=== PATIENT | female | born 1955 | race Hispanic/Latino ===

== ENCOUNTER 2017-12-05 22:16 | Emergency (ER) | payer OTHER, SELFPAY ==
--- OUTSIDE RECORDS SUMMARY | 2017-12-05 22:19 | XMS REPORT | Clinical Summary ---
:1955 Author Organization [facility] Address [address] [place] [id number] Phone Care Team Providers Name Role Phone Unavailable Primary Care Provider Unavailable Allergies Active Allergy Reactions Severity Noted Date Comments Morphine Other (See Comments) 06/11/2017 [place] very sick,head like going to explode Current Medications Prescription Sig. Disp. Refills Start Date End Date Status lisinopril Take 20 mg by mouth Active (PRINIVIL,ZESTRIL) 20 MG 2 (two) times tablet daily. levothyroxine (SYNTHROID, Take 75 mcg by Active LEVOTHROID) 75 MCG tablet mouth Every morning on an empty stomach. diazePAM (VALIUM) 10 MG Take 10 mg by mouth Active tablet every 6 (six) hours as needed for Anxiety. citalopram (CELEXA) 20 MG Take 20 mg by mouth Active tablet daily. Active Problems Not on file Encounters Date Type Specialty Care Team Description 06/11/2017 Emergency Emergency Medicine after 12/04/2016 Social History Tobacco Use Types Packs/Day Years Used Date Never Smoker Smokeless Tobacco: Never Used Alcohol Use Drinks/Week oz/Week Comments No Sex Assigned at Date Recorded Not on file Last Filed Vital Signs Vital Sign Reading Time Taken Blood Pressure 144/66 06/11/2017 10:36 PM [employer]IL[employer] AIDE [employer] Pulse 78 06/11/2017 10:36 PM [employer] Temperature 36.5 C (97.7 F) 06/11/2017 10:36 PM [employer] Respiratory Rate 20 06/11/2017 10:36 PM [employer] Oxygen Saturation 96% 06/11/2017 10:36 PM [employer] Inhaled Oxygen Concentration - - Weight 81.6 kg (180 lb) 06/11/2017 10:36 PM [employer] Height 157.5 cm (5' 2") 06/11/2017 10:36 PM [employer] Body Mass Index 32.92 06/11/2017 10:36 PM [employer] Plan of Treatment Not on file Results Not on fileafter 12/04/2016
--- OUTSIDE RECORDS SUMMARY | 2017-12-05 22:19 | XMS REPORT | Clinical Summary ---
:1955 Author Organization [facility] Address [address] [place] [id number] Care Team Providers Name Role Phone Dom Sotelo MD Primary Care Provider Allergies No Known Allergies Current Medications Prescription Sig. Disp. Refills Start Date End Date Status levothyroxine (SYNTHROID, Take 50 mcg by Active LEVOTHROID) 50 MCG tablet mouth daily. citalopram (CeleXA) 20 MG Take 20 mg by Active tablet mouth daily. lisinopril Take 20 mg by Active (PRINIVIL,ZESTRIL) 20 MG mouth 2 (two) tablet times a day. Active Problems Not on file Social History Tobacco Use Types Packs/Day Years Used Date Never Smoker Alcohol Use Drinks/Week oz/Week Comments No Sex Assigned at Date Recorded Not on file Last Filed Vital Signs Not on file Plan of Treatment Health Maintenance Due Date Last Done Comments CERVICAL CANCER SCREENING 1974 BREAST CANCER SCREENING 10/20/2003 COLON CANCER SCREENING 10/20/2003 SHINGRIX VACCINE (#1) 10/20/2003 ZOSTER VACCINE 2013 INFLUENZA VACCINE 02/12/2018 Results Not on fileafter 12/04/2016
[2017-12-05] MEDS ORDERED: METOCLOPRAMIDE 10 MG/2mL INJ ONE (23:45)
[2017-12-05] MEDS ORDERED: DIPHENHYDRAMINE 50 MG/ML VIAL ONE (23:45)
[2017-12-06 00:04] LABS: Absolute Lymphocytes (CBC) 1.9 K/uL (0.7-4.9); Absolute Monocytes 0.7 K/uL (0.1-1.3); Absolute Neutrophil 7.4 K/uL (1.8-8.0); Basophils % 0.8 % (0-1.3); Eosinophils % 3.7 % (0-4.4); Hematocrit 36.6 % (36.0-45.0); Lymphocytes % 18.5 % (15.3-44.8); MCH 30.6 pg (27.0-35.0); MCV 91.5 fL (80-100); MPV 8.1 fL (7.6-11.3)
[2017-12-06 00:09] LABS: Bicarbonate 28 mEq/L (21-31); Glucose Level 112 mg/dL (65-120); Potassium 3.7 mEq/L (3.6-5.0); Sodium Level 136 mEq/L (135-145)
[2017-12-06 00:10] LABS: BUN Blood Urea Nitrogen 8 mg/dL (6-20)
--- NOTE | 2017-12-06 01:36 | ER ---
Nurse's Notes [facility] Name: Carlie Barton Age: 62 yrs Sex: Female : 1955 Arrival Date: 12/05/2017 Time: 22:17 Bed 28 Private MD: Diagnosis: Headache Presentation: 12/05 22:47 Presenting complaint: Patient states: she started having a feeling of pins and needles kr2 to the right side of her head and to her right arm after taking her antibiotic that she started yesterday for a "stomach infection" She took it at 7pm and then started having the tingling at 8. She is also complaining of itching to her right arm. No rash or redness. Antibiotic is Amox-Clav 875-125mg. Transition of care: patient was not received from another setting of care. Onset of symptoms was December 05, 2017 at 20:00. Risk Assessment: Do you want to hurt yourself or someone else? Patient reports no desire to harm self or others. Initial Sepsis Screen: Does the patient meet any 2 criteria? No. Patient's initial sepsis screen is negative. Does the patient have a suspected source of infection? No. Patient's initial sepsis screen is negative. Care prior to arrival: None. 22:47 Method Of Arrival: Ambulatory kr2 22:47 Acuity: ELSI 4 kr2 Triage Assessment: 22:54 General: Appears in no apparent distress. uncomfortable, well groomed, well developed, kr2 well nourished, Behavior is cooperative, appropriate for age, anxious. Pain: Complains of pain in right side of head Pain currently is 9 out of 10 on a pain scale. Quality of pain is described as tingling, piercing, Pain began at 8pm Is continuous, Alleviated by nothing. 22:54 EENT: Nares are clear bilaterally Oral mucosa is moist. 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 Gait is steady, Speech is normal, Facial symmetry appears normal, Pupils are PERRLA, Tingling in right side of face and right arm. Cardiovascular: Capillary refill < 3 seconds in bilateral fingers Patient's skin is warm and dry. Respiratory: Airway is patent Respiratory effort is even, unlabored, Respiratory pattern is regular, symmetrical. GI: Abdomen is flat, non-distended. : Denies pain. Derm: Skin is intact, is healthy with good turgor, Skin is pink, warm \\T\\ dry. Musculoskeletal: Circulation, motion, and sensation intact. Historical: - Allergies: 22:52 Morphine; kr2 - Home Meds: 22:52 citalopram 20 mg tab 1 tab once daily [Active]; lisinopril 20 mg Oral tab 1 tab twice a kr2 day [Active]; amoxicillin-pot clavulanate 875-125 mg Oral tab [Active]; - PMHx: 22:52 Anxiety; Hypertension; neuropathy; kr2 - PSHx: 22:52 None; kr2 - Immunization history:: Adult Immunizations unknown. - Social history:: Smoking status: Patient/guardian denies using tobacco. - Ebola Screening: : No symptoms or risks identified at this time. Screenin:53 Abuse screen: Denies threats or abuse. Denies injuries from another. Nutritional kr2 screening: No deficits noted. Tuberculosis screening: No symptoms or risk factors identified. Fall Risk None identified. Assessment: 12/06 00:25 Reassessment: Patient appears in no apparent distress at this time. Patient and/or kr2 family updated on plan of care and expected duration. Pain level reassessed. Patient is alert, oriented x 3, equal unlabored respirations, skin warm/dry/pink. see triage assessment. 01:16 Reassessment: Patient appears in no apparent distress at this time. Patient and/or kr2 family updated on plan of care and expected duration. Pain level reassessed. Patient is alert, oriented x 3, equal unlabored respirations, skin warm/dry/pink. Patient denies pain at this time. Patient states feeling better. 01:42 Reassessment: pt and family at desk asking to be discharged, explained that we are mb3 waiting on CT to be read. Stated they want to go home anyway. explained about possible stroke and that they would need to sign out AMA, they said ok we will sign out. Vital Signs: 12/05 22:41 BP 145 / 66; Pulse 72; Resp 18; Temp 98.4; Pulse Ox 95% on R/A; Weight 81.65 kg; Height kr2 5 ft. 2 in. (157.48 cm); Pain 9/10; 12/06 00:26 BP 126 / 82; Pulse 62; Resp 17; Pulse Ox 98% on R/A; kr2 01:16 BP 141 / 68; Pulse 60; Resp 16; Pulse Ox 97% on R/A; kr2 12/05 22:41 Body Mass Index 32.92 (81.65 kg, 157.48 cm) kr2 NIH Stroke Scale Scores: 12/05 22:53 NIHSS Score: 0 kr2 ED Course: 22:17 Patient arrived in ED. es 22:34 Cholo Denney MD is Attending Physician. gs 22:41 Nadege Reveles, RN is Primary Nurse. kr2 22:50 Triage completed. kr2 22:55 Arm band placed on. kr2 22:56 Patient has correct armband on for positive identification. Bed in low position. Call kr2 light in reach. Side rails up X 1. Pulse ox on. NIBP on. 23:40 Inserted saline lock: 20 gauge in left antecubital area, using aseptic technique. Blood kr2 collected. 12/06 01:06 CT Head Brain wo Cont In Process Unspecified. EDMS 01:35 Dale Scott MD is Referral Physician. gs 01:45 No provider procedures requiring assistance completed. IV discontinued, intact, mb3 bleeding controlled, No redness/swelling at site. Pressure dressing applied. Administered Medications: 12/05 23:57 Drug: Reglan 5 mg Route: IVP; Site: left antecubital; kr2 12/06 01:41 Follow up: Response: No adverse reaction mb3 12/05 23:57 Drug: Benadryl 25 mg Route: IVP; Site: left antecubital; kr2 12/06 01:41 Follow up: Response: No adverse reaction mb3 Outcome: 01:35 Discharge ordered by . gs 01:46 Discharged to home ambulatory, with family. mb3 01:46 Condition: stable 01:46 Discharge instructions given to patient, family, Instructed on discharge instructions, follow up and referral plans. Demonstrated understanding of instructions, follow-up care. 01:46 Patient left the ED. mb3 NIH Stroke Scale - NIH Stroke Score Date: 12/05/2017 Time: 22:53 Total Score = 0 1a. Level of Consciousness (LOC) - 0(Alert) 1b. Level of Consciousness (LOC) (Year \\T\\ Age) - 0(Both) 1c. LOC Commands (Open \\T\\ Closes Eyes/Bridge Crane Operator) - 0(Both) 2. Best Gaze (Lateral Gaze Paresis) - 0(Normal) 3. Visual Field Loss - 0(No visual loss) 4. Facial Palsy - 0(Normal) 5a. Left Arm: Motor (10-second hold) - 0(No drift) 5b. Right Arm: Motor (10-second hold) - 0(No drift) 6a. Left Leg: Motor (5-second hold - always test supine) - 0(No drift) 6b. Right Leg: Motor (5-second hold - always test supine) - 0(No drift) 7. Limb Ataxia (finger/nose \\T\\ heel/fox - test with eyes open) - 0(Absent) 8. Sensory Loss (pinprick arms/legs/face) - 0(Normal) 9. Best Language: Aphasia (description/naming/reading) - 0(No aphasia) 10. Dysarthria (speech clarity - read or repeat words) - 0(Normal) 11. Extinction and Inattention (visual/tactile/auditory/spatial/personal) - 0(No abnormality) Initials: kr2 Signatures: Dispatcher [employer] EDPascale Sheriff Gregory, MD MD gs Reaves, Karey, RN RN kr2 Hemanth Farmer RN RN mb3 Corrections: (The following items were deleted from the chart) 00:25 05/24 22:54 Pain: Complains of pain in right side of head Pain currently is 9 kr2 out of 10 on a pain scale. Quality of pain is described as tingling, piercing, Pain began at 8pm Is continuous, Alleviated by nothing. kr2
--- NOTE | 2017-12-06 01:36 | EDPHYS ---
Physician Documentation [facility] Name: Carlie Barton Age: 62 yrs Sex: Female : 1955 Arrival Date: 12/05/2017 Time: 22:17 Bed 28 Private MD: ED Physician Cholo Denney HPI: 12/06 01:09 This 62 yrs old Female presents to ER via Ambulatory with complaints of gs Numbness, RT side. 01:09 The patient complains of pain to the forehead and right cheondoism. The patient describes gs the headache as throbbing. Onset: The symptoms/episode began/occurred suddenly. Associated signs and symptoms: Pertinent positives: paresthesias. Severity of symptoms: At its worst the pain was moderate, in the emergency department the pain is unchanged. The symptoms are alleviated by nothing. the symptoms are aggravated by nothing. 03:55 The patient has experienced similar episodes in the past, a few times. gs Historical: - Allergies: 12/05 22:52 Morphine; kr2 - Home Meds: 22:52 citalopram 20 mg tab 1 tab once daily [Active]; lisinopril 20 mg Oral tab 1 tab twice a kr2 day [Active]; amoxicillin-pot clavulanate 875-125 mg Oral tab [Active]; - PMHx: 22:52 Anxiety; Hypertension; neuropathy; kr2 - PSHx: 22:52 None; kr2 - Immunization history:: Adult Immunizations unknown. - Social history:: Smoking status: Patient/guardian denies using tobacco. - Ebola Screening: : No symptoms or risks identified at this time. ROS: 12/06 03:55 All other systems are negative. gs Exam: 01:12 Head/Face: Normocephalic, atraumatic. Eyes: Pupils equal round and reactive to light, gs extra-ocular motions intact. Lids and lashes normal. Conjunctiva and sclera are non-icteric and not injected. Cornea within normal limits. Periorbital areas with no swelling, redness, or edema. ENT: Nares patent. No nasal discharge, no septal abnormalities noted. Tympanic membranes are normal and external auditory canals are clear. Oropharynx with no redness, swelling, or masses, exudates, or evidence of obstruction, uvula midline. Mucous membranes moist. Neck: Trachea midline, no thyromegaly or masses palpated, and no cervical lymphadenopathy. Supple, full range of motion without nuchal rigidity, or vertebral point tenderness. No Meningismus. Chest/axilla: Normal chest wall appearance and motion. Nontender with no deformity. No lesions are appreciated. Cardiovascular: Regular rate and rhythm with a normal S1 and S2. No gallops, murmurs, or rubs. Normal PMI, no JVD. No pulse deficits. Respiratory: Lungs have equal breath sounds bilaterally, clear to auscultation and percussion. No rales, rhonchi or wheezes noted. No increased work of breathing, no retractions or nasal flaring. Abdomen/GI: Soft, non-tender, with normal bowel sounds. No distension or tympany. No guarding or rebound. No evidence of tenderness throughout. Back: No spinal tenderness. No costovertebral tenderness. Full range of motion. Skin: Warm, dry with normal turgor. Normal color with no rashes, no lesions, and no evidence of cellulitis. MS/ Extremity: Pulses equal, no cyanosis. Neurovascular intact. Full, normal range of motion. Neuro: Awake and alert, GCS 15, oriented to person, place, time, and situation. Cranial nerves II-XII grossly intact. Motor strength 5/5 in all extremities. Sensory grossly intact. Cerebellar exam normal. Normal gait. 01:12 Constitutional: The patient appears in no acute distress, alert, awake. 01:12 Neuro: Sensation: pin prick testing is normal, equal upon sharp touch. no decrease.. Vital Signs: 12/05 22:41 BP 145 / 66; Pulse 72; Resp 18; Temp 98.4; Pulse Ox 95% on R/A; Weight 81.65 kg; Height kr2 5 ft. 2 in. (157.48 cm); Pain 9/10; 12/06 00:26 BP 126 / 82; Pulse 62; Resp 17; Pulse Ox 98% on R/A; kr2 01:16 BP 141 / 68; Pulse 60; Resp 16; Pulse Ox 97% on R/A; kr2 12/05 22:41 Body Mass Index 32.92 (81.65 kg, 157.48 cm) kr2 NIH Stroke Scale Scores: 12/05 22:53 NIHSS Score: 0 [facility] MDM: 23:28 Patient medically screened. 12/06 01:12 Differential diagnosis: migraine, neoplasm, subarachnoid bleed, tension headache. Data reviewed: vital signs, nurses notes. Response to treatment: the patient's symptoms have resolved after treatment, the patient's pain is gone. 03:55 ED course: pt doesn't want to wait for CT results understands risks of gs sah,cva,development of critical illness chooses to leave. 12/05 23:29 Order name: CBC with Diff 12/05 23:29 Order name: Basic Metabolic Panel 12/05 23:29 Order name: CT Head Brain wo Cont gs Administered Medications: 12/05 23:57 Drug: Reglan 5 mg Route: IVP; Site: left antecubital; kr2 12/06 01:41 Follow up: Response: No adverse reaction mb3 12/05 23:57 Drug: Benadryl 25 mg Route: IVP; Site: left antecubital; kr2 12/06 01:41 Follow up: Response: No adverse reaction mb3 Disposition: 12/06/17 01:35 Discharged to Home. Impression: Headache. - Condition is Stable. - Discharge Instructions: General Headache Without Cause. - Medication Reconciliation Form, Thank You Letter, Antibiotic Education, Prescription Opioid Use form. - Follow up: Private Physician; When: 2 - 3 days; Reason: Re-evaluation by your physician. Follow up: Dale Scott MD; When: 2 - 3 days; Reason: Re-evaluation by your physician. NIH Stroke Scale - NIH Stroke Score Date: 12/05/2017 Time: 22:53 Total Score = 0 1a. Level of Consciousness (LOC) - 0(Alert) 1b. Level of Consciousness (LOC) (Year \T\ Age) - 0(Both) 1c. LOC Commands (Open \T\ Closes Eyes/Wire Charger) - 0(Both) 2. Best Gaze (Lateral Gaze Paresis) - 0(Normal) 3. Visual Field Loss - 0(No visual loss) 4. Facial Palsy - 0(Normal) 5a. Left Arm: Motor (10-second hold) - 0(No drift) 5b. Right Arm: Motor (10-second hold) - 0(No drift) 6a. Left Leg: Motor (5-second hold - always test supine) - 0(No drift) 6b. Right Leg: Motor (5-second hold - always test supine) - 0(No drift) 7. Limb Ataxia (finger/nose \T\ heel/fox - test with eyes open) - 0(Absent) 8. Sensory Loss (pinprick arms/legs/face) - 0(Normal) 9. Best Language: Aphasia (description/naming/reading) - 0(No aphasia) 10. Dysarthria (speech clarity - read or repeat words) - 0(Normal) 11. Extinction and Inattention (visual/tactile/auditory/spatial/personal) - 0(No abnormality) Initials: kr2 Signatures: Dispatcher [employer] EDMS Cholo Denney MD MD Nadege Reveles RN RN kr2 Hemanth Farmer RN RN mb3 Corrections: (The following items were deleted from the chart) 01:35 01:35 12/06/2017 01:35 Discharged to Home. Impression: Headache. Condition is gs Stable. Forms are Medication Reconciliation Form, Thank You Letter, Antibiotic Education, Prescription Opioid Use. Follow up: Private Physician; When: 2 - 3 days; Reason: Re-evaluation by your physician. 01:46 01:35 12/06/2017 01:35 Discharged to Home. Impression: Headache. Condition is mb3 Stable. Discharge Instructions: General Headache Without Cause. Forms are Medication Reconciliation Form, Thank You Letter, Antibiotic Education, Prescription Opioid Use. Follow up: Private Physician; When: 2 - 3 days; Reason: Re-evaluation by your physician. Follow up: Dale Scott; When: 2 - 3 days; Reason: Re-evaluation by your physician. 03:58 01:09 Headache History: Denies prior headaches. [facility]
[2017-12-06 02:01] VITALS: TEMP 98.4
[2017-12-06 02:03] VITALS: BP 141/68; O2SAT 97
--- NOTE | 2017-12-06 08:55 | RAD REPORT ---
EXAM DESCRIPTION: CT - Head Brain Wo Cont - 12/06/2017 4:05 am CLINICAL HISTORY: Headache A preliminary written report was provided at the time of the study, and the report was reviewed prio r to final dictation. COMPARISON: CT head May 2017 TECHNIQUE: Axial 5 mm thick images of the head were obtained without IV contrast. All CT scans are performed using dose optimization technique as appropriate and may include automated exposure control or mA/KV adjustment according to patient size. FINDINGS: No intracranial hemorrhage, mass, edema or shift of mid-line structures. No acute infarcti on changes seen. No abnormal extra-axial fluid collections. Ventricles are normal. No significant at rophy or chronic ischemic change. Mastoid air cells and visualized portions of the paranasal sinuses are clear. No acute bony findings. Arterial and physiologic calcifications are present. IMPRESSION: Negative non-contrast CT head examination for acute finding No significant change from comparison.
== END 2017-12-06 01:46 | disposition home or self-care (01) ==
LOC: ER 22:16
DX: R51 Headache (principal); R20.2 Paresthesia of skin; I10 Essential (primary) hypertension; F41.9 Anxiety disorder, unspecified; Z88.5 Allergy status to narcotic agent
CPT/HCPCS: 36415; 70450; 80048; 85025; 96374; 96375; 99284; J2765

== ENCOUNTER 2020-09-03 21:06 | Emergency (ER) | payer SELFPAY ==
--- OUTSIDE RECORDS SUMMARY | 2020-09-03 21:09 | XMS REPORT | Continuity of Care Document ---
:1955 Author Organization [facility] t Address [address] [place] [address] Care Team Providers Name Role Phone Dom Sotelo MD Primary Care Physician Juanito GONZALEZP, F Attending Clinician Doctor Unassigned, Name Attending Clinician Unavailable Problems This patient has no known problems. Allergies, Adverse Reactions, Alerts Allergy Allergy Status Severity Reaction(s) Onset Inactive Treating Comm ents Source Name Type Date Date Clinician Morphine Propensi Active Other (See 2016-[address] [place] [address] [facility] ty to Comments) 08-11 sick,head Luke s - adverse 00:00: like Medical reaction 00 going to Center s explode Social History Social Habit Start Date Stop Date Quantity Comments Source Sex Assigned At [facility] ethodist Tobacco use and 2017-06-11 2017-06-[address] [facility] Cheryl kes - exposure 00:00:00 00:00:00 [facility] Center Alcohol intake 2016-03-09 2016-03-09 Current [facility] 00:00:00 00:00:00 non-drinker of alcohol (finding) Smoking Status Start Date Stop Date Source Never smoker Mario resendiz Medications Ordered Filled Start Stop Current Ordering Indication Dosage Frequency Signature Comments Components Source Medication Medication Date Date Medication? Clinician (SIG) Name Name citalopram 2016-07 Yes 20mg QD Take [address] (CELEXA) 20 1-28 by mouth Luke s - MG tablet 23:12: daily. Medica l 41 Center lisinopril 2016-07 Yes 20mg Q.5D Take [address] (PRINIVIL,Z 1-28 by mouth 2 Cheryl kes - ESTRIL) 20 23:12: (two) Medica l MG tablet 41 times Center daily. levothyroxi 2016-07 Yes 75ug Take [address] [facility] ne 1-28 mcg by [facility] - (SYNTHROID, 23:12: mouth Medic al LEVOTHROID) 41 Every Center 75 MCG morning on tablet an empty stomach. diazePAM 2016-07 Yes 10mg Take [address] [facility] (VALIUM) 10 1-28 by mouth Luke s - MG tablet 23:12: every 6 Medic al 41 (six) Center hours as needed for Anxiety. levothyroxi Yes 50ug QD Take 50 [address]ka [address]on ne 8-26 mcg by [facility] (SYNTHROID, 16:18: mouth st LEVOTHROID) 42 daily. 50 MCG tablet citalopram Yes 20mg QD Take 20 mg [place] (CeleXA) 20 8-26 by mouth Meth de MG tablet 16:18: daily. st 42 lisinopril Yes 20mg Q.5D Take 20 mg [place] (PRINIVIL,Z 8-26 by mouth 2 Me thodi ESTRIL) 20 16:18: (two) st MG tablet 42 times a day. Procedures This patient has no known procedures. Plan of Care Planned Activity Planned Date Details Comments Source Future Scheduled 2020-02-13 INFLUENZA VACCINE Iliana Brown Test 00:00:00 [code = INFLUENZA VACCINE] Future Scheduled 2018 65+ PNEUMOCOCCAL Mario Brown Test 00:00:00 VACCINE (1 of 1 - PPSV23) [code = 65+ PNEUMOCOCCAL VACCINE (1 of 1 - PPSV23)] Future Scheduled 2003-10-20 COLONOSCOPY SCREENING [place] [facility] Test 00:00:00 [code = COLONOSCOPY SCREENING] Future Scheduled 2003-10-20 SHINGLES VACCINES (#1) H [facility] Test 00:00:00 [code = SHINGLES VACCINES (#1)] Future Scheduled 2003-10-20 BREAST CANCER [facility] thodist Test 00:00:00 SCREENING [code = BREAST CANCER SCREENING] Future Scheduled 1969 COVID-19 VACCINE (1 of H ounalini Sikh Test 00:00:00 2) [code = COVID-19 VACCINE (1 of 2)] Encounters Start End Encounter Admission Attending Care Care Encounter Source Date/Time Date/Time Type Type Clinicians Facility Department ID 2019-11-27 2019-11-27 Emergency Juanito [facility] [id number] 17:33:42 18:20:00 López Dyson [id number] [place] [id number] [place] [id number] 2019-11-27 2019-11-27 Orders Doctor CITLALLI [id number] 00:00:00 00:00:00 Only Unassigned, [place] [id number] [facility] [id number] Results This patient has no known results.
--- OUTSIDE RECORDS SUMMARY | 2020-09-03 21:09 | XMS REPORT | Clinical Summary ---
:1955 Author Organization [facility] Address [address] [place] [address] Care Team Providers Name Role Phone Dom Sotelo MD Primary Care Provider Allergies No Known Active Allergies Medications Medication Sig Dispensed Refills Start Date End Date Status levothyroxine Take 50 mcg by 0 A ctive (SYNTHROID, LEVOTHROID) mouth daily. 50 MCG tablet citalopram (CeleXA) 20 Take 20 mg by 0 Active MG tablet mouth daily. lisinopril Take 20 mg by 0 Activ e (PRINIVIL,ZESTRIL) 20 MG mouth 2 (two) tablet times a day. Active Problems Not on file Medical History Medical History Date Comments Hypertension Anxiety Social History Tobacco Use Types Packs/Day Years Used Date Never Smoker Alcohol Use Drinks/Week oz/Week Comments No Sex Assigned at Date Recorded Not on file Last Filed Vital Signs Not on file Plan of Treatment Health Maintenance Due Date Last Done Comments COVID-19 VACCINE (1 of 2) 1969 BREAST CANCER SCREENING 10/20/2003 COLONOSCOPY SCREENING 10/20/2003 SHINGLES VACCINES (#1) 10/20/2003 65+ PNEUMOCOCCAL VACCINE (1 of - PPSV23) 2018 INFLUENZA VACCINE 02/13/2020 Results Not on fileafter 09/03/2019 Advance Directives For more information, please contact: [phone] Type Date Recorded 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
--- OUTSIDE RECORDS SUMMARY | 2020-09-03 21:09 | XMS REPORT | Clinical Summary ---
:1955 Author Organization [facility] Address [address] [place] [id number] Care Team Providers Name Role Phone Unavailable Primary Care Provider Unavailable Allergies Active Allergy Reactions Severity Noted Date Comments Morphine Other (See Comments) 06/11/2017 [place] ve ry sick,head like going to explod e Medications Medication Sig Dispensed Refills Start Date End Date Status lisinopril Take 20 mg by 0 Activ e (PRINIVIL,ZESTRIL) 20 mouth 2 (two) MG tablet times daily. levothyroxine Take 75 mcg by 0 A ctive (SYNTHROID, LEVOTHROID) mouth Every 75 MCG tablet morning on an empty stomach. diazePAM (VALIUM) 10 MG Take 10 mg by 0 Active tablet mouth every 6 (six) hours as needed for Anxiety. citalopram (CELEXA) 20 Take 20 mg by 0 Active MG tablet mouth daily. Active Problems Not on file Social History Tobacco Use Types Packs/Day Years Used Date Never Smoker Smokeless Tobacco: Never Used Alcohol Use Drinks/Week oz/Week Comments No Sex Assigned at Date Recorded Not on file Last Filed Vital Signs Not on file Plan of Treatment Not on file Results Not on fileafter 09/03/2019
[2020-09-03] MEDS ORDERED: METOCLOPRAMIDE 10 MG/2mL INJ ONE (22:15)
[2020-09-03] MEDS ORDERED: DIPHENHYDRAMINE 50 MG/ML VIAL ONE (22:15)
[2020-09-03] MEDS ORDERED: NA CHLORIDE 0.9% 50 ML ONE (22:16)
[2020-09-03] MEDS ORDERED: ACETAMINOPHEN 500 MG TAB ONE (22:16)
[2020-09-03 22:26] LABS: Urine Blood NEGATIVE (NEG); Urine Glucose NEGATIVE (NEG); Urine Protein NEGATIVE (NEG); Urine pH 6.5 (5.0-7.0)
[2020-09-03 22:31] LABS: Absolute Lymphocytes (CBC) 2.6 K/uL (0.7-4.9); Basophils % 1.1 % (0-1.3); MPV 8.2 fL (7.6-11.3); Protime INR 0.95; RBC Red Blood Cell Count 4.14 M/uL (3.86-4.86)
[2020-09-03 22:44] LABS: BUN Blood Urea Nitrogen 13 mg/dL (7-18); Bicarbonate 28 mmol/L (21-32); Glucose Level 91 mg/dL (74-106); Potassium 3.6 mmol/L (3.5-5.1); Sodium Level 142 mmol/L (136-145)
[2020-09-03 22:45] LABS: ALT/SGPT 43 U/L (12-78); AST/SGOT 31 U/L (15-37); Albumin 3.2 g/dL (3.4-5.0); Alkaline Phosphatase 120 U/L (45-117); Bilirubin Direct < 0.1 mg/dL (0-0.2); Bilirubin Total 0.2 mg/dL (0.2-1.0); Magnesium 2.1 mg/dL (1.8-2.4); NT PRO-BNP 128 pg/mL (<125); Protein, Total 7.4 g/dL (6.4-8.2); Troponin (Emerg Dept Use Only) < 0.02 ng/mL (0.0-0.045)
--- NOTE | 2020-09-03 23:35 | ER ---
Nurse's Notes [facility] Name: Carlie Barton Age: 64 yrs Sex: Female : 1955 Arrival Date: 09/03/2020 Time: 21:09 Bed 23 Private MD: Diagnosis: Headache;Vertigo Presentation: 09/03 21:46 Chief complaint: Patient's son or daughter states: she started having dizziness, mg2 headache, blurred vision since . an hour ago, she feels her jaw is locked and her body was shaking. Coronavirus screen: Client denies travel out of the [place] in the last 14 days. At this time, the client does not indicate any symptoms associated with coronavirus-19. Ebola Screen: No symptoms or risks identified at this time. Initial Sepsis Screen: Does the patient meet any 2 criteria? No. Patient's initial sepsis screen is negative. Does the patient have a suspected source of infection? No. Patient's initial sepsis screen is negative. Risk Assessment: Do you want to hurt yourself or someone else? Patient reports no desire to harm self or others. Onset of symptoms was September 01, 2020. 21:46 Method Of Arrival: Wheelchair mg2 21:46 Acuity: ELSI 3 mg2 Triage Assessment: 22:02 Headache History: The patient has had previous headaches. General: Appears in no mg2 apparent distress. comfortable. General: Behavior is calm, cooperative. Pain: Pain currently is 4 out of 10 on a pain scale. Also complains of no other associated symptoms. Pain: Complains of pain in head. Pain: Pain began gradually, 2-3 days ago. 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 - Social history:: Smoking status: Patient denies any tobacco usage or history of. Screenin:01 Abuse screen: Denies threats or abuse. Denies injuries from another. Nutritional mg2 screening: No deficits noted. Tuberculosis screening: No symptoms or risk factors identified. Fall Risk IV access (20 points). Assessment: 22:00 General: Appears in no apparent distress. comfortable, Behavior is calm, cooperative. mg2 Pain: Complains of pain in frontal head. Neuro: Level of Consciousness is awake, alert, obeys commands, Oriented to person, place, time, situation. Neuro: Reports dizziness, since 3 days ago headache. Cardiovascular: Capillary refill < 3 seconds Patient's skin is warm and dry. Respiratory: Airway is patent Respiratory effort is even, unlabored, Respiratory pattern is regular, symmetrical. GI: No deficits noted. : No deficits noted. EENT: Derm: Skin is intact, is healthy with good turgor. Musculoskeletal: Circulation, motion, and sensation intact. Capillary refill < 3 seconds. 23:21 Reassessment: Patient appears in no apparent distress at this time. Patient denies pain mg2 at this time. Patient states feeling better. 23:41 Reassessment: spoke to the son Too and informed about the results. patient is feeling mg2 better. Vital Signs: 21:46 BP 176 / 150; Pulse 79; Resp 18; Temp 98.5; Pulse Ox 100% on R/A; Weight 92.99 kg; mg2 Height 5 ft. 1 in. (154.94 cm); 22:21 BP 158 / 62; Pulse 62; Resp 18; Pulse Ox 97% on R/A; mg2 23:20 BP 149 / 63; Pulse 60; Resp 18; Pulse Ox 96% on R/A; mg2 21:46 Body Mass Index 38.73 (92.99 kg, 154.94 cm) mg2 ED Course: 21:09 Patient arrived in ED. bp1 21:32 Moshe Lao MD is Attending Physician. mh7 21:46 Andrei Sheppard RN is Primary Nurse. mg2 21:48 Triage completed. mg2 21:50 Arm band placed on. mg2 22:01 Patient has correct armband on for positive identification. playground monitor on. Pulse mg2 ox on. NIBP on. 22:01 No provider procedures requiring assistance completed. mg2 22:02 XRAY Chest (1 view) In Process Unspecified. EDMS 22:05 Inserted saline lock: 20 gauge in right antecubital area, using aseptic technique. mg2 Blood collected. 23:07 CT Head Brain wo Cont In Process Unspecified. EDMS 23:41 IV discontinued, intact, bleeding controlled, No redness/swelling at site. Pressure mg2 dressing applied. Administered Medications: 22:10 Drug: Tylenol 1000 mg Route: PO; mg2 23:21 Follow up: Response: No adverse reaction mg2 22:16 Drug: Reglan 5 mg Route: IVP; Site: right antecubital; mg2 23:21 Follow up: Response: No adverse reaction mg2 22:18 Drug: Benadryl 25 mg Route: IVP; Site: right antecubital; mg2 23:21 Follow up: Response: No adverse reaction mg2 Outcome: 23:33 Discharge ordered by MD. yen 23:41 Discharged to home ambulatory. mg2 23:41 Condition: stable 23:41 Discharge instructions given to patient, Instructed on discharge instructions, follow up and referral plans. medication usage, Demonstrated understanding of instructions, follow-up care, medications, Prescriptions given X 1. 23:42 Patient left the ED. mg2 Signatures: Dispatcher [employer] EDMS Andrei Sheppard RN RN mg2 Liya Bender Maurice, MD MD 7
--- NOTE | 2020-09-03 23:35 | EDPHYS ---
Physician Documentation [facility] Name: Carlie Barton Age: 64 yrs Sex: Female : 1955 Arrival Date: 09/03/2020 Time: 21:09 Bed 23 Private MD: ED Physician Moshe Lao HPI: 09/03 21:55 This 64 yrs old Female presents to ER via Wheelchair with complaints of mh7 Dizziness, Headache, Blurred Vision. 21:55 The patient presents with dizziness, sense of spinning. Onset: The symptoms/episode mh7 began/occurred 2 day(s) ago. Context: occurred at home, occurred while the patient was sitting, just prior to the episode the patient experienced no apparent symptoms. Modifying factors: The symptoms are alleviated by holding head still, the symptoms are aggravated by movement of head, changing position. Associated signs and symptoms: Pertinent positives: blurred vision, headache, Pertinent negatives: abdominal pain, agitation, ataxia, chest pain, combativeness, confusion, diaphoresis, focal weakness, head injury, nausea, near-syncope, numbness, palpitations, seizure, shortness of breath, syncope, tingling, vomiting. Severity of symptoms: At their worst the symptoms were moderate 2 day(s) ago, in the emergency department the symptoms are unchanged. The patient has experienced similar episodes in the past, multiple times. 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 - Social history:: Smoking status: Patient denies any tobacco usage or history of. ROS: 21:55 Constitutional: Negative for fever, chills, and weight loss, Eyes: Negative for injury, mh7 pain, redness, and discharge, ENT: Negative for injury, pain, and discharge, Neck: Negative for injury, pain, and swelling, Cardiovascular: Negative for chest pain, palpitations, and edema, Respiratory: Negative for shortness of breath, cough, wheezing, and pleuritic chest pain, Abdomen/GI: Negative for abdominal pain, nausea, vomiting, diarrhea, and constipation, Back: Negative for injury and pain, : Negative for injury, bleeding, discharge, and swelling, MS/Extremity: Negative for injury and deformity, Skin: Negative for injury, rash, and discoloration, Psych: Negative for depression, anxiety, suicide ideation, homicidal ideation, and hallucinations, Allergy/Immunology: Negative for hives, rash, and allergies, Endocrine: Negative for neck swelling, polydipsia, polyuria, polyphagia, and marked weight changes, Hematologic/Lymphatic: Negative for swollen nodes, abnormal bleeding, and unusual bruising. Exam: 23:07 Constitutional: This is a well developed, well nourished patient who is awake, alert, mh7 and in no acute distress. Head/Face: Normocephalic, atraumatic. Eyes: Pupils equal round and reactive to light, extra-ocular motions intact. Lids and lashes normal. Conjunctiva and sclera are non-icteric and not injected. Cornea within normal limits. Periorbital areas with no swelling, redness, or edema. ENT: Nares patent. No nasal discharge, no septal abnormalities noted. Tympanic membranes are normal and external auditory canals are clear. Oropharynx with no redness, swelling, or masses, exudates, or evidence of obstruction, uvula midline. Mucous membranes moist. Neck: Trachea midline, no thyromegaly or masses palpated, and no cervical lymphadenopathy. Supple, full range of motion without nuchal rigidity, or vertebral point tenderness. No Meningismus. Chest/axilla: Normal chest wall appearance and motion. Nontender with no deformity. No lesions are appreciated. Cardiovascular: Regular rate and rhythm with a normal S1 and S2. No gallops, murmurs, or rubs. Normal PMI, no JVD. No pulse deficits. Respiratory: Lungs have equal breath sounds bilaterally, clear to auscultation and percussion. No rales, rhonchi or wheezes noted. No increased work of breathing, no retractions or nasal flaring. Abdomen/GI: Soft, non-tender, with normal bowel sounds. No distension or tympany. No guarding or rebound. No evidence of tenderness throughout. Back: No spinal tenderness. No costovertebral tenderness. Full range of motion. Skin: Warm, dry with normal turgor. Normal color with no rashes, no lesions, and no evidence of cellulitis. MS/ Extremity: Pulses equal, no cyanosis. Neurovascular intact. Full, normal range of motion. Neuro: Awake and alert, GCS 15, oriented to person, place, time, and situation. Cranial nerves II-XII grossly intact. Motor strength 5/5 in all extremities. Sensory grossly intact. Cerebellar exam normal. Normal gait. Psych: Awake, alert, with orientation to person, place and time. Behavior, mood, and affect are within normal limits. Vital Signs: 21:46 BP 176 / 150; Pulse 79; Resp 18; Temp 98.5; Pulse Ox 100% on R/A; Weight 92.99 kg; mg2 Height 5 ft. 1 in. (154.94 cm); 22:21 BP 158 / 62; Pulse 62; Resp 18; Pulse Ox 97% on R/A; mg2 23:20 BP 149 / 63; Pulse 60; Resp 18; Pulse Ox 96% on R/A; mg2 21:46 Body Mass Index 38.73 (92.99 kg, 154.94 cm) mg2 MDM: 23:32 Differential diagnosis: cardiac arrhythmia, hypovolemia, idiopathic dizziness, mh7 near-syncope, vertigo, Headache, migraine. Data reviewed: vital signs, nurses notes, old medical records, lab test result(s), cardiac enzymes, CBC, electrolytes, urinalysis, EKG, radiologic studies, CT scan, plain films. Data interpreted: Pulse oximetry: on room air is 96 %. Interpretation: normal. Counseling: I had a detailed discussion with the patient and/or guardian regarding: the historical points, exam findings, and any diagnostic results supporting the discharge/admit diagnosis, the presence of at least one elevated blood pressure reading (>120/80) during this emergency department visit, lab results, radiology results, the need for outpatient follow up, to return to the emergency department if symptoms worsen or persist or if there are any questions or concerns that arise at home. Response to treatment: the patient's symptoms have resolved after treatment, the patient's blood pressure is in an acceptable range, mental status has returned to baseline, the patient no longer shows bradycardia, the patient is not short of breath, the patient is not tachycardic, the patient's pain is gone, the patient's temperature has normalized. 23:33 Patient medically screened. [facility] 09/03 21:49 Order name: Basic Metabolic Panel [facility] 09/03 21:49 Order name: CBC with Diff [facility] 09/03 21:49 Order name: LFT's; Complete Time: 22:46 7 09/03 21:49 Order name: Magnesium; Complete Time: 22:46 [facility] 09/03 21:49 Order name: NT PRO-BNP; Complete Time: 22:46 7 09/03 21:49 Order name: PT-INR; Complete Time: 22:46 [facility] 09/03 21:49 Order name: Troponin (emerg Dept Use Only); Complete Time: 22:46 [facility] 09/03 21:49 Order name: XRAY Chest (1 view) [facility] 09/03 21:50 Order name: Basic Metabolic Panel; Complete Time: 22:46 EDMS 09/03 21:50 Order name: CT Head Brain wo Cont [facility] 09/03 21:50 Order name: CBC with Automated Diff; Complete Time: 22:46 EDMS 09/03 22:17 Order name: Urine Dipstick--Ancillary (enter results); Complete Time: 22:27 3 09/03 21:49 Order name: EKG; Complete Time: 21:50 [facility] 09/03 21:49 Order name: Cardiac monitoring; Complete Time: 22:21 [facility] 09/03 21:49 Order name: EKG - Nurse/Tech; Complete Time: 22:00 [facility] 09/03 21:49 Order name: IV Saline Lock; Complete Time: 22:21 [facility] 09/03 21:49 Order name: Labs collected and sent; Complete Time: 22:21 [facility] 09/03 21:49 Order name: O2 Per Protocol; Complete Time: 22:21 [facility] 09/03 21:49 Order name: O2 Sat Monitoring; Complete Time: 22:21 [facility] 09/03 21:49 Order name: Urine Dipstick-Ancillary (obtain specimen); Complete Time: 22:18 mh7 Administered Medications: 22:10 Drug: Tylenol 1000 mg Route: PO; mg2 23:21 Follow up: Response: No adverse reaction mg2 22:16 Drug: Reglan 5 mg Route: IVP; Site: right antecubital; mg2 23:21 Follow up: Response: No adverse reaction mg2 22:18 Drug: Benadryl 25 mg Route: IVP; Site: right antecubital; mg2 23:21 Follow up: Response: No adverse reaction mg2 Disposition: 09/03/20 23:33 Discharged to Home. Impression: Headache, Vertigo. - Condition is Stable. - Discharge Instructions: General Headache Without Cause, Vertigo, [id number]. - Prescriptions for Meclizine 25 mg Oral Tablet - take 1 tablet by ORAL route every 8 hours As needed; 15 tablet. - Medication Reconciliation Form, Thank You Letter, Antibiotic Education, Prescription Opioid Use form. - Follow up: Private Physician; When: 1 - 2 days; Reason: Worsening of condition, Recheck today's complaints, Continuance of care, Re-evaluation by your physician. - Problem is an acute exacerbation. - Symptoms have improved. Signatures: Dispatcher [employer] EDMS Andrei Sheppard RN RN mg2 Moshe Lao MD MD mh7 Corrections: (The following items were deleted from the chart) 23:42 23:33 09/03/2020 23:33 Discharged to Home. Impression: Headache; Vertigo. Condition is mg2 Stable. Forms are Medication Reconciliation Form, Thank You Letter, Antibiotic Education, Prescription Opioid Use. Follow up: Private Physician; When: 1 - 2 days; Reason: Worsening of condition, Recheck today's complaints, Continuance of care, Re-evaluation by your physician. Problem is an acute exacerbation. Symptoms have improved. mh7
[2020-09-04 00:57] VITALS: TEMP 98.5
[2020-09-04 01:12] VITALS: BP 149/63; O2SAT 96
--- NOTE | 2020-09-04 20:58 | RAD REPORT ---
EXAM DESCRIPTION: RAD - Chest Single View - 09/03/2020 10:02 pm CLINICAL HISTORY: Dizziness COMPARISON: None. FINDINGS: Single frontal radiograph view of the chest. Cardiomediastinal silhouette: Normal size and contour. Lungs: No consolidation, pneumothorax, or pleural effusion. Low lung volumes. Bones: Degenerative spurring of the acromioclavicular joints. Endplate spondylosis of the spine. Upper abdomen: No abnormality identified. IMPRESSION: 1. No acute pulmonary process identified. Electronically signed by: Tristan Johnson 09/03/2020 10:22 PM [employer] Due to temporary technical issues with the PACS/Fluency reporting system, reports are being signed by the in house radiologists without review as a courtesy to insure prompt reporting. The interpreting radiologist is fully responsible for the content of the report.
--- NOTE | 2020-09-04 21:21 | RAD REPORT ---
EXAM DESCRIPTION: CT - Head Brain Wo Cont - 09/04/2020 6:06 am CLINICAL HISTORY: Dizziness;Headache COMPARISON: 12/06/2017 TECHNIQUE: Axial CT of the head obtained from the skull apex to the skull base without contrast. FINDINGS: No acute intracranial hemorrhage identified. No mass, mass effect, shift of the midline, a bnormal extra-axial fluid collection or CT evidence of acute ischemic change identified. The ventricu lar system and sulcal spaces are not enlarged. Scattered areas of hypodensity throughout the suprat entorial white matter are nonspecific and may be related to chronic small vessel ischemic change. The visualized paranasal sinuses and mastoid air cells are well aerated. No skull fracture identifi ed. Visualized orbits and globes are unremarkable. Atherosclerotic calcification of the intracranial internal carotid arteries. IMPRESSION: 1. No acute intracranial abnormality by CT criteria. This exam was performed according to our departmental dose-optimization program, which includes autom ated exposure control, adjustment of the mA and/or kV according to patient size and/or use of iterati ve reconstruction technique. Electronically signed by: Tristan Johnson 09/03/2020 11:17 PM [employer] Due to temporary technical issues with the PACS/Fluency reporting system, reports are being signed by the in house radiologists without review as a courtesy to insure prompt reporting. The interpreting radiologist is fully responsible for the content of the report.
== END 2020-09-03 23:42 | disposition home or self-care (01) ==
LOC: ER 21:06
DX: R51.9 Headache, unspecified (principal); I10 Essential (primary) hypertension; F41.9 Anxiety disorder, unspecified; Z86.73 Personal history of transient ischemic attack (TIA), and cerebral infarction without residual deficits
CPT/HCPCS: 36415; 70450; 71045; 80048; 80076; 81003; 83735; 83880; 84484; 85025; 85610; 96374; 96375; 99284; J1200; J2765

== ENCOUNTER 2021-09-28 11:14 | Emergency (ER) | payer OTHER, SELFPAY ==
--- NOTE | 2021-09-28 11:53 | RAD REPORT ---
EXAM DESCRIPTION: RAD - Knee Left 3 View - 09/28/2021 11:43 am CLINICAL HISTORY: Left knee pain FINDINGS: No fracture or dislocation is seen. Moderate 2 marked osteoarthritis medial compartment consistent joint space narrowing and osteophytes. Patella femoral compartment also involved
[2021-09-28] MEDS ORDERED: TRAMADOL HCL 50 MG TAB ONE (11:59)
--- NOTE | 2021-09-28 12:00 | ER ---
Nurse's Notes [facility] Name: Carlie Barton Age: 65 yrs Sex: Female : 1955 Arrival Date: 09/28/2021 Time: :17 Bed 24 Private MD: Diagnosis: Pain in right knee Presentation: 09/28 11:20 Chief complaint: Spouse and/or significant other states: the LEFT knee has been hurting tw2 a while. was supposed to get injections in it but the [facility] sent us over here. 2 years ago she got injections and it did help for about 1 month. Coronavirus screen: At this time, the client does not indicate any symptoms associated with coronavirus-19. Ebola Screen: Patient denies travel to an Ebola-affected area in the 21 days before illness onset. Initial Sepsis Screen: Does the patient meet any 2 criteria? No. Patient's initial sepsis screen is negative. Does the patient have a suspected source of infection? No. Patient's initial sepsis screen is negative. Risk Assessment: Do you want to hurt yourself or someone else? Patient reports no desire to harm self or others. Note provider Yeimy Marquis NP in triage performing assessment. Onset of symptoms was September 28, 2021. 11:20 Method Of Arrival: Wheelchair tw2 11:20 Acuity: ELSI 4 tw2 Triage Assessment: 11:22 General: Appears in no apparent distress. obese, well groomed, Behavior is calm, tw2 cooperative, appropriate for age. Pain: Complains of pain in medial aspect of left knee. 11:25 General: pt reports most pain with weight bearing. tw2 Historical: - Allergies: 11:22 Morphine; "hot and on fire"; tw2 - Home Meds: 11:22 lisinopril 20 mg Oral tab 1 tab once daily [Active]; citalopram 20 mg tab 1 tab once tw2 daily [Active]; levothyroxine 25 mcg oral cap 1 cap once daily [Active]; - PMHx: 11:22 Anxiety; Hypertension; mini stroke-2017; neuropathy; Hypothyroidism; tw2 - PSHx: 11:22 Cholecystectomy; tw2 - Immunization history:: Client reports receiving the 2nd dose of the Covid vaccine. - Social history:: Smoking status: Patient denies any tobacco usage or history of. Screenin:38 Abuse screen: Denies threats or abuse. Denies injuries from another. Nutritional ld1 screening: No deficits noted. Tuberculosis screening: No symptoms or risk factors identified. Fall Risk None identified. Assessment: 11:38 General: Appears in no apparent distress. comfortable, Behavior is calm, cooperative, ld1 appropriate for age. Pain: Complains of pain in left knee Pain does not radiate. Pain currently is 7 out of 10 on a pain scale. Quality of pain is described as throbbing. Neuro: Level of Consciousness is awake, alert, obeys commands, Oriented to person, place, time, situation, Appropriate for age. Cardiovascular: Capillary refill < 3 seconds Patient's skin is warm and dry. Respiratory: Airway is patent Respiratory effort is even, unlabored, Respiratory pattern is regular, symmetrical. GI: Abdomen is round non-distended. : No signs and/or symptoms were reported regarding the genitourinary system. EENT: No signs and/or symptoms were reported regarding the EENT system. Derm: No signs and/or symptoms reported regarding the dermatologic system. Musculoskeletal: Reports pain in left knee. Vital Signs: 11:20 BP 134 / 73; Pulse 70; Resp 17; Temp 97.7(O); Pulse Ox 97% on R/A; Pain 10/10; tw2 11:38 BP 127 / 88; Pulse 65; Resp 19; Pulse Ox 98% on R/A; Pain 7/10; ld1 ED Course: 11:17 Patient arrived in ED. ds1 11:18 Suresh Hubbard DO is Attending Physician. ms3 11:18 [facility]quis [facility]C [facility] kb 11:22 Triage completed. tw2 11:25 Arm band placed on. tw2 11:26 Rekha Caracmo, VIDA is Primary Nurse. ld1 11:38 Patient has correct armband on for positive identification. Placed in gown. Bed in low ld1 position. Call light in reach. Side rails up X2. Pulse ox on. NIBP on. Door closed. Noise minimized. Warm blanket given. 11:38 No provider procedures requiring assistance completed. ld1 11:43 Knee Left 3 View XRAY In Process Unspecified. EDMS 12:21 Patient did not have IV access during this emergency room visit. ld1 Administered Medications: 11:58 Drug: traMADol 50 mg Route: PO; ld1 Outcome: 11:59 Discharge ordered by MD. carreno 12:20 Discharged to home via wheelchair, with family. ld1 12:20 Condition: stable 12:20 Discharge instructions given to patient, family, Instructed on discharge instructions, follow up and referral plans. medication usage, Demonstrated understanding of instructions, follow-up care, medications. 12:21 Patient left the ED. ld1 Signatures: Dispatcher [employer] EDMS Joanna Marquis, HERMINIO-C SENSITIZER-Cristina Beckre ds1 Trinity Yee, RN RN tw2 Suresh Hubbard DO DO ms3 Rekha Carcamo, RN RN ld1
--- NOTE | 2021-09-28 12:00 | EDPHYS ---
Physician Documentation [facility] Name: Carlie Barton Age: 65 yrs Sex: Female : 1955 Arrival Date: 09/28/2021 Time: :17 Bed 24 Private MD: ED Physician Suresh Hubbard HPI: 09/28 11:26 This 65 yrs old Female presents to ER via Wheelchair with complaints of Knee kb Pain. 11:26 The patient presents with pain, tenderness. The complaints affect the left knee. kb Context: The problem was sustained at an unknown site, resulted from a chronic condition, the patient can partially bear weight, can ambulate using a cane. Onset: The symptoms/episode began/occurred 3 year(s) ago. Modifying factors: The symptoms are alleviated by nothing. the symptoms are aggravated by weight bearing. Associated signs and symptoms: The patient has no apparent associated signs or symptoms. Treatment prior to arrival includes: no previous treatment. Severity of symptoms: At their worst the symptoms were moderate, in the emergency department the symptoms are unchanged. The patient has experienced similar episodes in the past, chronically. The patient has been recently seen by a physician:. Pt reports she has had left knee pain for 3 years. Went to get an injection into joint at the [facility] today and was told to come to the ER for increased pain. . 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 - Social history:: Smoking status: Patient denies any tobacco usage or history of. ROS: 11:25 Constitutional: Negative for fever, chills, and weight loss. kb 11:25 MS/extremity: Positive for pain, of the medial aspect of left knee. 11:25 All other systems are negative. Exam: 11:25 Constitutional: This is a well developed, well nourished patient who is awake, alert, kb and in no acute distress. Head/Face: Normocephalic, atraumatic. ENT: Moist Mucous membranes Respiratory: Respirations even and unlabored. No increased work of breathing. Talking in full sentences Skin: Warm, dry with normal turgor. Normal color. Neuro: Awake and alert, GCS 15, oriented to person, place, time, and situation. Moves all extremities. Normal gait. Psych: Awake, alert, with orientation to person, place and time. Behavior, mood, and affect are within normal limits. 11:25 Musculoskeletal/extremity: Extremities: grossly normal except: noted in the medial aspect of left knee: pain, tenderness, ROM: limited active range of motion due to pain, in the left knee, Circulation is intact in all extremities. Sensation intact. Weight bearing: can bear weight with assistance only, uses cane. Vital Signs: 11:20 BP 134 / 73; Pulse 70; Resp 17; Temp 97.7(O); Pulse Ox 97% on R/A; Pain 10/10; tw2 11:38 BP 127 / 88; Pulse 65; Resp 19; Pulse Ox 98% on R/A; Pain 7/10; ld1 MDM: 11:22 Patient medically screened. kb 11:23 Data reviewed: vital signs, nurses notes. Data interpreted: Pulse oximetry: on room air kb is 97 %. Interpretation: normal. 11:58 Counseling: I had a detailed discussion with the patient and/or guardian regarding: the kb historical points, exam findings, and any diagnostic results supporting the discharge/admit diagnosis, radiology results, the need for outpatient follow up, a orthopedic surgeon, to return to the emergency department if symptoms worsen or persist or if there are any questions or concerns that arise at home. 09/28 11:22 Order name: Knee Left 3 View XRAY; Complete Time: 11:57 kb Administered Medications: 11:58 Drug: traMADol 50 mg Route: PO; ld1 Disposition: 15:20 Co-signature as Attending Physician, Joanna LARIOS I agree with the assessment ms3 and plan of care. Disposition Summary: 09/28/21 11:59 Discharge Ordered Location: Home kb Condition: Stable kb Diagnosis - Pain in right knee kb Followup: kb - With: Emergency Department - When: As needed - Reason: Worsening of condition Followup: kb - With: Private Physician - When: 2 - 3 days - Reason: Recheck today's complaints, Continuance of care, Re-evaluation by your physician Discharge Instructions: - Discharge Summary Sheet kb - Musculoskeletal Pain kb - Arthritis, [id number] kb Forms: - Medication Reconciliation Form kb - Thank You Letter kb - Antibiotic Education kb - Prescription Opioid Use kb Prescriptions: - Diclofenac Sodium 75 mg Oral tablet,delayed release (DR/EC) - take 1 tablet by ORAL route 2 times per day As needed; 30 tablet; Refills: 0, kb Product Selection Permitted Signatures: Dispatcher [employer] EDMS Joanna Marquis, INSTRUCTOR GROUND SERVICES-C INSTRUCTOR GROUND SERVICES-Trinity Yeh, RN RN tw2 Suresh Hubbard DO DO ms3 Rekha Carcamo, RN RN ld1
[2021-09-28 12:46] VITALS: TEMP 97.7
[2021-09-28 12:48] VITALS: BP 127/88; O2SAT 98
== END 2021-09-28 12:21 | disposition home or self-care (01) ==
LOC: ER 11:14
DX: M25.562 Pain in left knee (principal); I10 Essential (primary) hypertension; E03.9 Hypothyroidism, unspecified; F41.9 Anxiety disorder, unspecified; Z88.5 Allergy status to narcotic agent
CPT/HCPCS: 99283

== ENCOUNTER → 2023-07-10 | Emergency (ER) | payer OTHER ==
--- NOTE | 2023-07-10 11:23 | ER ---
Nurse's Notes [facility] Name: Carlie Barton Age: 67 yrs Sex: Female : 1955 Arrival Date: 07/10/2023 Time: 10:49 Bed IW10 Private MD: Macy Anguiano Diagnosis: Ingrown toenail - uncomplicated Presentation: 07/10 11:03 Chief complaint: Bilateral great toe nails ingrown, c/o pain. Coronavirus screen: At this time, the client does not indicate any symptoms associated with coronavirus-19. Ebola Screen: No symptoms or risks identified at this time. Initial Sepsis Screen: Does the patient meet any 2 criteria? No. Patient's initial sepsis screen is negative. Does the patient have a suspected source of infection? No. Patient's initial sepsis screen is negative. Risk Assessment: Do you want to hurt yourself or someone else? Patient reports no desire to harm self or others. Onset of symptoms was July 10, 2023. 11:03 Method Of Arrival: Wheelchair hb 11:03 Acuity: ELSI 4 hb Triage Assessment: 11:04 General: Appears in no apparent distress. uncomfortable, Behavior is calm, cooperative. hb Pain: Pain currently is 6 out of 10 on a pain scale. Neuro: Level of Consciousness is awake, alert, obeys commands, Oriented to person, place, time, situation. Cardiovascular: Patient's skin is warm and dry. Respiratory: Respiratory effort is even, unlabored, Respiratory pattern is regular, symmetrical. Historical: - Allergies: 11:05 Morphine; hb - PMHx: 11:05 Hypothyroidism; mini stroke-2017; Hypertension; Anxiety; neuropathy; hb - PSHx: 11:05 Cholecystectomy; hb - Immunization history:: Adult Immunizations up to date. - Family history:: not pertinent. - Social history:: Smoking status: . - Hospitalizations: : No recent hospitalization is reported. Screenin:05 [facility] ED Fall Risk Assessment (Adult) Score/Fall Risk Level 0 - 2 = Low Risk hb Oriented to surroundings, Maintained a safe environment, Educated pt \T\ family on fall prevention, incl call for assistance when getting out of bed. Abuse screen: Denies threats or abuse. Denies injuries from another. Nutritional screening: No deficits noted. Tuberculosis screening: No symptoms or risk factors identified. Assessment: 11:05 General: See triage assessment.. hb Vital Signs: 11:03 BP 193 / 72; Pulse 70; Resp 16; Temp 98; Pulse Ox 100% ; Pain 6/10; hb 11:03 Pain Scale: Adult hb ED Course: 10:52 Patient arrived in ED. mr 10:52 Macy Anguiano is Private Physician. mr 10:52 Ryder Mcdonald MD is Attending Physician. rn 11:04 Triage completed. hb 11:04 Arm band placed on. hb 11:05 Patient has correct armband on for positive identification. Provided Education on: . hb 11:05 No provider procedures requiring assistance completed. Patient did not have IV access hb during this emergency room visit. 11:23 Carson Fernandez DPM is Referral Physician. rn Administered Medications: 11:31 Not Given (Pt left before med administration): trimethoprim-sulfamethoxazole(160 mg-800 hb mg (ds) 1 tablet PO once 11:31 Not Given (Pt left before med administration): [id number] mg PO once hb Medication: 11:05 VIS not applicable for this client. hb Outcome: 11:23 Discharge ordered by . rn 11:25 Discharged to home pt left before signing discharge papers. hb 11:25 Condition: stable 11:25 Discharge instructions given to left before signing discharge papers 11:33 Patient left the ED. hb Signatures: Emily Sharma, Hugo Arias Ryder Mcdonald MD MD rn Baxter, Heather, RN RN hb
--- NOTE | 2023-07-10 11:23 | EDPHYS ---
Physician Documentation [facility] Name: Carlie Barton Age: 67 yrs Sex: Female : 1955 Arrival Date: 07/10/2023 Time: 10:49 Bed IW10 Private MD: Macy Anguiano ED Physician Ryder Mcdonald HPI: 07/10 11:07 This 67 yrs old Female presents to ER via Wheelchair with complaints of rn Ingrown toe nail. 11:07 The patient presents with pain, that is chronic. The complaints affect the left foot, rn right foot. Onset: The symptoms/episode began/occurred 6 month(s) ago. Modifying factors: The symptoms are alleviated by sitting, the symptoms are aggravated by weight bearing, wearing shoes. Associated signs and symptoms: Pertinent positives: swelling, Pertinent negatives: fever. Severity of symptoms: At their worst the symptoms were moderate, in the emergency department the symptoms are unchanged. The patient has experienced similar episodes in the past. Patient reports several months of pain to bilateral great toes. Has had ingrown toenails for months. No acute drainage or fever. No trauma. Reports not taking [id number]-[id number] medication at this time for the pain. Hurts with weightbearing and walking and wearing shoes. Not diabetic.. Historical: - Allergies: 11:05 Morphine; hb - PMHx: 11:05 Hypothyroidism; mini stroke-2017; Hypertension; Anxiety; neuropathy; hb - PSHx: 11:05 Cholecystectomy; hb - Immunization history:: Adult Immunizations up to date. - Family history:: not pertinent. - Social history:: Smoking status: . - Hospitalizations: : No recent hospitalization is reported. ROS: 11:07 Constitutional: Negative for fever, chills, and weight loss, MS/Extremity: Positive for rn pain to bilateral great toes along nail edge 11:07 Skin: Negative for discoloration or purulent drainage rn Exam: 11:07 Constitutional: This is a well developed, well nourished patient who is awake, alert, rn and in no acute distress. MS/ Extremity: Pulses equal, no cyanosis. Neurovascular intact. Full, normal range of motion. Equal circumference. Bilateral great toes with signs of chronic ingrown toenail along medial edge, no fluctuance, no purulence expressed with pressure, no erythema or warmth. Nails cut very short and irregular/sharp Vital Signs: 11:03 BP 193 / 72; Pulse 70; Resp 16; Temp 98; Pulse Ox 100% ; Pain 6/10; hb 11:03 Pain Scale: Adult hb MDM: 10:52 Patient medically screened. rn 11:21 Differential diagnosis: ingrown toenail. Data reviewed: vital signs, nurses notes, and rn as a result, I will discharge patient. Counseling: I had a detailed discussion with the patient and/or guardian regarding the historical points, exam findings, and any diagnostic results supporting the discharge/admit diagnosis, the need for outpatient follow up, to return to the emergency department if symptoms worsen or persist or if there are any questions or concerns that arise at home. Special discussion: I discussed with the patient/guardian in detail that at this point there is no indication for admission to the hospital. It is understood, however, that if the symptoms persist or worsen the patient needs to return immediately for re-evaluation. Based on the history and exam findings, there is no indication for further emergent testing or inpatient evaluation. I discussed with the patient/guardian the need to see the event specialist product demonstrator for further evaluation of the symptoms. ED course: No indication for emergent removal of nail at this time. Does not appear infected, rather causing chronic pain. Counseled patient regarding proper toenail trimming as she is cutting them too short. Will prescribe anti-inflammatory and antibiotic and urged him to follow-up with podiatry. No evidence of paronychia or need for drainage at this time.. Administered Medications: 11:31 Not Given (Pt left before med administration): trimethoprim-sulfamethoxazole(160 mg-800 hb mg (ds) 1 tablet PO once 11:31 Not Given (Pt left before med administration): [id number] mg PO once hb Disposition Summary: 07/10/23 11:23 Discharge Ordered Notes: Location: Home rn Problem: an ongoing problem rn Symptoms: are unchanged rn Condition: Stable rn Diagnosis - Ingrown toenail - uncomplicated rn Followup: rn - With: Carson Fernandez DPM - When: As needed - Reason: Recheck today's complaints, Re-evaluation by your physician Discharge Instructions: - Discharge Summary Sheet rn - Ingrown Toenail rn Forms: - Medication Reconciliation Form rn - Thank You Letter rn - Antibiotic print and pattern designer - Prescription Opioid Use rn - Patient Portal Instructions rn - Leadership Thank You Letter rn Prescriptions: - Celebrex 100 mg Oral capsule - take 1 capsule ORAL route every 12 hours As needed take with food; 10 capsule; rn Refills: 0, Product Selection Permitted - Bactrim DS 800-160 mg Oral Tablet - take 1 tablet ORAL route every 12 hours for 10 days; 20 tablet; Refills: 0, rn Product Selection Permitted Signatures: Ryder Mcdonald MD MD rn Baxter, Heather, RN RN
[2023-07-10 12:43] VITALS: BP 193/72; TEMP 98; O2SAT 100
== END ==
LOC: ER 10:49
DX: L60.0 Ingrowing nail (principal); Z88.5 Allergy status to narcotic agent
CPT/HCPCS: 99282

== ENCOUNTER 2023-09-25 15:20 | Observation (INO) | payer OTHER ==
[2023-09-25 16:07] LABS: Absolute Basophils 0.1 K/uL (0-0.5); Absolute Eosinophils 0.2 K/uL (0-0.5); Absolute Lymphocytes (CBC) 2.1 K/uL (0.7-4.9); Absolute Monocytes 0.4 K/uL (0.1-1.3); Absolute Neutrophil 3.9 K/uL (1.8-8.0); Basophils % 1.3 % (0-1.3); Eosinophils % 2.5 % (0-4.4); Hematocrit 38.3 % (36.0-45.0); Lymphocytes % 31.2 % (15.3-44.8); MCV 91.1 fL (80-100); MPV 7.6 fL (7.6-11.3); Monocytes % 6.6 % (3.3-12.3); Neutrophils % 58.4 % (41.7-73.7); Platelets 315 thou/uL (152-406); Red Cell Distribution Width 13.4 % (12.1-15.2)
[2023-09-25 16:33] LABS: Anion Gap 5.3 mEq/L (5.0-15.0); Potassium 4.3 mEq/L (3.5-5.1); Troponin High Sensitivity 4.4 pg/mL (<58.9)
--- NOTE | 2023-09-25 17:02 | RAD REPORT ---
EXAM DES[facility]: [facility] 4:10 pm CLINICAL HISTORY: CHEST PAIN COMPARISON: Chest Single View dated 09/03/2020; Chest Single View dated 05/21/2017; Chest Single View dated 04/07/2017; Chest Single View dated 04/02/2017 TECHNIQUE: Portable AP view of the chest. FINDINGS: The lungs are clear. No pneumothorax or effusion. The cardiomediastinal contours are unre markable. IMPRESSION: No acute cardiopulmonary process.
[2023-09-25] MEDS ORDERED: MAGNES/ALUMIN/SIMET 30ML UCUP ONE (17:33)
[2023-09-25] MEDS ORDERED: FAMOTIDINE 20 MG/2 ML VIAL IV ONE (17:33)
[2023-09-25] MEDS ORDERED: LIDOCAINE VISCOUS 2% 10ML ORAL SOLN ONE (17:33)
--- NOTE | 2023-09-25 17:56 | EDPHYS ---
Physician Documentation [facility] Name: Carlie Barton Age: 67 yrs Sex: Female : 1955 Arrival Date: 09/25/2023 Time: 15:20 Bed 13 Private MD: ED Physician Heath Daigle HPI: 09/24 15:37 This 67 yrs old Female presents to ER via Wheelchair with complaints of Chest ec2 Pain. 15:37 Patient arrives today for evaluation of chest pain. Patient reports that she has been ec2 having chest pain ongoing for the past 4 days. Patient reports that the pain has been constant for the past 4 days, no specific alleviating or exacerbating factors. Patient reports no difficulty breathing, no cough and cold symptoms. Reports a history of hypertension as well as anxiety. Reports history of TIA as well. . Historical: - Allergies: 15:31 Morphine; ll1 - Home Meds: 21:08 citalopram 20 mg tab 1 tab once daily [Active]; lisinopril 20 mg Oral tab 1 tab once tl4 daily [Active]; levothyroxine 25 mcg cap 1 cap once daily [Active]; - PMHx: 15:31 Anxiety; Hypertension; Hypothyroidism; mini stroke-2017; neuropathy; ll1 - PSHx: 15:31 Cholecystectomy; ll1 - Immunization history:: Adult Immunizations up to date. - Social history:: Smoking status: Patient denies any tobacco usage or history of. ROS: 15:37 Constitutional: as per hpi ec2 Exam: 15:37 Constitutional: GEN: NAD Head: atraumatic Eyes: EOMI Ears: External ears are ec2 normal. CV: regular rate LUNGS: no respiratory distress ABD: non-distended SKIN: no evidence of rashes MSK: no evidence of trauma NEURO: moves all extremities equally Vital Signs: 15:32 BP 156 / 78; Pulse 58; Resp 17; Temp 97.4; Pulse Ox 96% on R/A; Weight 92.08 kg; Height ll1 5 ft. 0 in. ; Pain 10/10; 17:30 BP 157 / 83; Pulse 52; Resp 11; Pulse Ox 96% on R/A; tl4 18:00 BP 158 / 72; Pulse 47; Resp 20; Pulse Ox 98% on R/A; tl4 18:30 BP 175 / 44; Pulse 51; Resp 12; Pulse Ox 98% on R/A; tl4 19:00 BP 182 / 87; Pulse 49; Resp 19; Pulse Ox 98% on R/A; Pain 6/10; tl4 21:15 BP 136 / 64; Pulse 56; Resp 15; Temp 98.6(O); Pulse Ox 98% on R/A; tl4 15:32 Body Mass Index 39.65 (92.08 kg, 152.4 cm) ll1 15:32 Pain Scale: Adult ll1 19:00 Pain Scale: Adult tl4 MDM: 15:32 Patient medically screened. ec2 15:37 Data reviewed: vital signs. ED course: Patient arrives today for evaluation of chest ec2 pain. Examination remarkable for well-appearing nontoxic individual is otherwise in no acute distress. Will obtain lab work, EKG, chest x-ray. Currently evaluating for process was ACS, doubt PE or dissection.. 15:50 ED course: EKG independently reviewed and interpreted by me, shows normal sinus rhythm, ec2 rate of 84, no acute ST segment elevations, nonconcerning intervals.. 16:53 ED course: Metabolic profile is reassuring, BNP minimally elevated, CBC is reassuring, ec2 troponin within normal ranges. Chest x-ray independently reviewed and interpreted by me, shows no acute intrathoracic process. . 17:55 ED course: On reassessment patient with some chest discomfort remaining. Will admit for ec2 observation. Discussed case with hospitalist, pending mission. 09/24 15:36 Order name: Basic Metabolic Panel; Complete Time: 16:53 ec2 09/24 15:36 Order name: CBC with Diff; Complete Time: 16:53 ec2 09/24 15:36 Order name: NT PRO-BNP; Complete Time: 16:53 ec2 09/24 15:36 Order name: Troponin HS; Complete Time: 16:53 ec2 09/24 18:14 Order name: Urinalysis w/ reflexes EDMS 09/24 18:14 Order name: CBC with Automated Diff EDMS 09/24 18:14 Order name: CBC with Automated Diff EDMS 09/24 18:14 Order name: Comprehensive Metabolic Panel EDMS 09/24 18:14 Order name: Comprehensive Metabolic Panel EDMS 09/24 18:14 Order name: Magnesium EDMS 09/24 18:14 Order name: Magnesium EDMS 09/24 18:14 Order name: Phosphorus EDMS 09/24 18:14 Order name: Phosphorus EDMS 09/24 18:14 Order name: Troponin High Sensitivity EDMS 09/24 18:14 Order name: Troponin High Sensitivity EDMS 09/24 18:14 Order name: Troponin High Sensitivity EDMS 09/24 18:14 Order name: Troponin High Sensitivity EDMS 09/24 15:36 Order name: XRAY Chest (1 view); Complete Time: 17:03 ec2 09/24 15:36 Order name: EKG; Complete Time: 15:37 ec2 09/24 18:14 Order name: CONS Physician Consult EDMS 09/24 15:36 Order name: Cardiac monitoring; Complete Time: 16:19 ec2 09/24 15:36 Order name: EKG - Nurse/Tech; Complete Time: 15:42 ec2 09/24 15:36 Order name: IV Saline Lock; Complete Time: 15:53 ec2 09/24 15:36 Order name: Labs collected and sent; Complete Time: 15:53 ec2 09/24 15:36 Order name: O2 Per Protocol; Complete Time: 16:14 ec2 09/24 15:36 Order name: O2 Sat Monitoring; Complete Time: 16:14 ec2 Administered Medications: 17:39 Drug: Alum-Mag Hydroxide-Simeth PO Suspension (200 mg-200 mg-20 mg/5 mL) 30 ml PO once tl4 Route: PO; 21:26 Follow up: Response: No adverse reaction tl4 17:39 Drug: Viscous Lidocaine Mucous Membrane Liquid (4 %) 10 ml Mucous Membrane once Route: tl4 Mucous Membrane; 21:26 Follow up: Response: No adverse reaction tl4 17:47 Drug: Famotidine IVP 20 mg IVP once; dilute with 10 mL 0.9% NaCl; give over 2 minutes tl4 Route: IVP; Site: right antecubital; 21:26 Follow up: Response: No adverse reaction tl4 Disposition Summary: 09/25/23 17:56 Hospitalization Ordered Notes: Hospitalization Status: Inpatient Admission ec2 Provider: Yuval Naranjo ec2 Condition: Stable ec2 Problem: an ongoing problem ec2 Symptoms: have improved ec2 Bed/Room Type: Standard ec2 Location: [facility] ER HOLD(09/25/23 18:50) bc6 [facility] Diagnosis - Chest pain, unspecified ec2 Discharge Instructions: - Discharge Summary Sheet ec2 - Nonspecific Chest Pain, Adult, [id number] ec2 Forms: - Medication Reconciliation Form ec2 - SBAR form ec2 - Leadership Thank You Letter ec2 Prescriptions: - Pepcid 20 mg Oral Tablet - take 1 tablet ORAL route once daily; 20 tablet; Refills: 0, Product Selection ec2 Permitted Signatures: Dispatcher [employer] Urbano Gaines RN RN ll1 Adina Hansen 6 Heath Daigle MD MD ec2 Geovany Vasquez RN RN tl4 Corrections: (The following items were deleted from the chart) 18:50 17:56 Telemetry/MedSurg (observation) ec2 6 18:50 17:56 ec2 6
--- NOTE | 2023-09-25 17:56 | ER ---
Nurse's Notes [facility] Name: Carlie Barton Age: 67 yrs Sex: Female : 1955 Arrival Date: 09/25/2023 Time: 15:20 Bed 13 Private MD: Diagnosis: Chest pain, unspecified Presentation: 09/24 15:32 Chief complaint: Patient states: Mid CP started Saturday. Weak, dizzy, chills. No ll1 fever. Some N/V/D. Coronavirus screen: Client denies travel out of the [place] in the last 14 days. At this time, the client does not indicate any symptoms associated with coronavirus-19. Ebola Screen: Patient denies travel to an Ebola-affected area in the 21 days before illness onset. Initial Sepsis Screen: Does the patient meet any 2 criteria? No. Patient's initial sepsis screen is negative. Does the patient have a suspected source of infection? No. Patient's initial sepsis screen is negative. Risk Assessment: Do you want to hurt yourself or someone else? Patient reports no desire to harm self or others. Onset of symptoms was September 21, 2023. 15:32 Method Of Arrival: Wheelchair ll1 15:32 Acuity: ELSI 3 ll1 Triage Assessment: 15:33 General: Appears in no apparent distress. Behavior is calm, cooperative, appropriate ll1 for age. General: Reports chills for fatigue for. Pain: Complains of pain in chest Pain currently is 10 out of 10 on a pain scale. Cardiovascular: Reports chest pain, fatigue, lightheadedness, nausea, vomiting. GI: Reports diarrhea, nausea, vomiting. Historical: - Allergies: 15:31 Morphine; ll1 - Home Meds: 21:08 citalopram 20 mg tab 1 tab once daily [Active]; lisinopril 20 mg Oral tab 1 tab once tl4 daily [Active]; levothyroxine 25 mcg cap 1 cap once daily [Active]; - PMHx: 15:31 Anxiety; Hypertension; Hypothyroidism; mini stroke-2017; neuropathy; ll1 - PSHx: 15:31 Cholecystectomy; ll1 - Immunization history:: Adult Immunizations up to date. - Social history:: Smoking status: Patient denies any tobacco usage or history of. Screenin:36 [facility] ED Fall Risk Assessment (Adult) History of falling in the last 3 months, tl4 including since admission No falls in past 3 months (0 pts) Confusion or Disorientation No (0 pts) Intoxicated or Sedated No (0 pts) Impaired Gait No (0 pts) Mobility Assist Device Used No (0 pt) Altered Elimination No (0 pt) Score/Fall Risk Level 0 - 2 = Low Risk Oriented to surroundings, Maintained a safe environment, Educated pt \T\ family on fall prevention, incl call for assistance when getting out of bed, Assessed \T\ reinforced patient's understanding of fall precautions, Hourly rounding (assess needs \T\ fall precautionary measures) done, Used ambulatory aids as needed (educated on \T\ assisted with), Used gait belt as appropriate. Abuse screen: Denies threats or abuse. Denies injuries from another. Nutritional screening: No deficits noted. Tuberculosis screening: No symptoms or risk factors identified. Assessment: 16:30 General: Appears in no apparent distress. Behavior is calm, cooperative. Pain: tl4 Complains of pain in abdomen Pain does not radiate. Pain began 1 day ago. Neuro: No deficits noted. Cardiovascular: No deficits noted. Respiratory: No deficits noted. GI: Reports upper abdominal pain. : No deficits noted. No signs and/or symptoms were reported regarding the genitourinary system. EENT: No deficits noted. No signs and/or symptoms were reported regarding the EENT system. 21:09 Reassessment: Pt wants to sign AMA due to no availability of beds. Risks of signing AMA tl4 explained to patient including cardiac issues, deterioration of condition, and . Pt acknowledged understanding and accepts responsibility. Pt encouraged to seek immediate medical attention for any symptoms that concern her. Pt acknowledges understanding. Pt signed AMA form. Dr Naranjo is aware. Vital Signs: 15:32 BP 156 / 78; Pulse 58; Resp 17; Temp 97.4; Pulse Ox 96% on R/A; Weight 92.08 kg; Height ll1 5 ft. 0 in. ; Pain 10/10; 17:30 BP 157 / 83; Pulse 52; Resp 11; Pulse Ox 96% on R/A; tl4 18:00 BP 158 / 72; Pulse 47; Resp 20; Pulse Ox 98% on R/A; tl4 18:30 BP 175 / 44; Pulse 51; Resp 12; Pulse Ox 98% on R/A; tl4 19:00 BP 182 / 87; Pulse 49; Resp 19; Pulse Ox 98% on R/A; Pain 6/10; tl4 21:15 BP 136 / 64; Pulse 56; Resp 15; Temp 98.6(O); Pulse Ox 98% on R/A; tl4 15:32 Body Mass Index 39.65 (92.08 kg, 152.4 cm) ll1 15:32 Pain Scale: Adult ll1 19:00 Pain Scale: Adult tl4 ED Course: 15:26 Patient arrived in ED. ae5 15:31 Heath Daigle MD is Attending Physician. ec2 15:31 Arm band placed on. ll1 15:33 Triage completed. ll1 15:43 EKG done, by ED staff, reviewed by Heath Daigle MD. ll1 15:58 Initial lab(s) drawn, by me, sent to lab. Inserted saline lock: 22 gauge in right ll1 antecubital area, using aseptic technique. Blood collected. 16:12 XRAY Chest (1 view) In Process Unspecified. EDMS 16:19 playground monitor on. Pulse ox on. NIBP on. Door closed. Noise minimized. Warm blanket ap3 given. 17:03 Patient has correct armband on for positive identification. Placed in gown. Bed in low tl4 position. Call light in reach. Side rails up X2. Adult w/ patient. Provided Education on: ed process. 17:39 Geovany Vasquez, VIDA is Primary Nurse. tl4 17:55 Yuval Naranjo MD is Hospitalizing Provider. ec2 21:08 No provider procedures requiring assistance completed. Patient maintains SpO2 tl4 saturation greater than 95% on room air. 21:08 IV discontinued, intact, bleeding controlled, No redness/swelling at site. Pressure tl4 dressing applied. Administered Medications: 17:39 Drug: Alum-Mag Hydroxide-Simeth PO Suspension (200 mg-200 mg-20 mg/5 mL) 30 ml PO once tl4 Route: PO; 21:26 Follow up: Response: No adverse reaction tl4 17:39 Drug: Viscous Lidocaine Mucous Membrane Liquid (4 %) 10 ml Mucous Membrane once Route: tl4 Mucous Membrane; 21:26 Follow up: Response: No adverse reaction tl4 17:47 Drug: Famotidine IVP 20 mg IVP once; dilute with 10 mL 0.9% NaCl; give over 2 minutes tl4 Route: IVP; Site: right antecubital; 21:26 Follow up: Response: No adverse reaction tl4 Medication: 21:09 VIS not applicable for this client. tl4 Outcome: 17:56 Decision to Hospitalize by Provider. ec2 21:08 AMA AMA form signed tl4 21:08 Condition: stable 21:08 Instructed on the need for admit, 21:33 Patient left the ED. tl4 Signatures: Dispatcher [employer] Eloisa Carolina RN RN ap3 Urbano Durham RN RN ll1 Heath Daigle MD MD ec2 Geovany Vasquez RN RN tl4 Reba Tenorio ae5
[2023-09-25] MEDS ORDERED: ONDANSETRON 4 MG/2 ML VIAL IV PRN (18:09)
[2023-09-25] MEDS ORDERED: ACETAMINOPHEN 325 MG TABLET PO PRN (18:09)
--- NOTE | 2023-09-25 18:14 | P.HP ---
Certification for Inpatient Patient admitted to: Observation With expected LOS: <2 Midnights Practitioner: I am a practitioner with admitting privileges, knowledge of patient current condition, hospital course, and medical plan of care. Services: Services provided to patient in accordance with Admission requirements found in Title 42 Section 412.3 of the Code of Federal Regulations Patient History Date of Service: 09/25/23 Reason for admission: Chest Pain History of Present Illness: 67 yrs old Female with past medical history of hypertension, h ypothyroidism, anxiety, neuropathy, history of CVA, who came to ER with chest discomfort which has been going on for the last 4 days and has been progressively worsening and was brought to ER. Pain is located in retrosternally with no radiation.sharp in quality, 6 out of 10 in severity . No specific alleviating or exacerbating factors. Denies any shortness of breath. No fever or chills. No nausea vomiting or diarrhea. Patient was assessed in the ER and is admitted for further management for possible unstable angina Allergies morphine Adverse Reaction (Verified 05/22/17 02:14) Itching Home medications list reviewed: Yes Home Medications: Levothyroxine [Synthroid*] 75 mcg PO [id number] 05/22/17 Temazepam 15 mg PO BEDTIME PRN 05/22/17 lisinopriL [Prinivil*] 20 mg PO BID 05/22/17 ALPRAZolam [Xanax*] 0.5 mg PO TID #30 tab 05/23/17 Docusate [Colace Cap] 100 mg PO BID #60 cap 05/23/17 Pantoprazole [Protonix Tab*] 40 mg PO DAILYAC #30 tab 05/23/17 - Past Medical/Surgical History Diabetic: No Past Medical History: Reviewed- Non-Contributory -: Hypertension -: Depression with anxiety -: GERD -: Hypothyroidism -: Migraine headaches Past Surgical History: Reviewed- Non-Contributory -: Right laceration arm repair Psychosocial/ Personal History: She is to 38 years, has 3 children, she does not work. - Family History Family History: Reviewed- Non-Contributory - Family History Father -: Hypertension, Diabetes Brother -: Diabetes - Social History Smoking Status: Never smoker Alcohol use: No CD- Drugs: No Caffeine use: No Review of Systems 10-point ROS is otherwise unremarkable Other: All the 10 point Review of systems negative except for those mentioned HPI Physical Examination - Vital Signs Temperature: 98.1 F Blood Pressure: 135/76 Pulse: 67 Respirations: 18 Pulse Ox (%): 98 - Physical Exam General: Alert, In no apparent distress, Oriented x3, Obese HEENT: Atraumatic, Normocephalic Neck: Supple Respiratory: Clear to auscultation bilaterally, Normal air movement Cardiovascular: No edema, Normal pulses, Regular rate/rhythm, Normal S1 S2, No gallops Capillary refill: <2 Seconds Gastrointestinal: Normal bowel sounds, Soft and benign, W/out hepatosplenomegaly, No ascites Musculoskeletal: No clubbing, No swelling Integumentary: No rashes Neurological: Normal speech, Normal strength at 5/5 x4 extr, Normal tone, Sensation intact Lymphatics: No axilla or inguinal lymphadenopathy - Studies Laboratory Data (last 24 hrs) 09/25/23 09/25/23 15:57 15:57 WBC 6.60 Hgb 13.0 Hct 38.3 Plt Count 315 Sodium 138 Potassium 4.3 BUN 12 Creatinine 0.75 Glucose 97 Assessment and Plan - Problems (Diagnosis) (1) Unstable angina Current Visit: Yes Status: Acute Plan: Unstable Angina Will trend cardiac enzymes Will monitor telemetry Started on aspirin and statin EKG did not show any acute changes sinus ST-T suggestive of ischemia Will get an echocardiogram Cardiology consult (2) Anxiety Current Visit: No Status: Chronic Plan: Continue home medications and titrate as needed (3) GERD (gastroesophageal reflux disease) Onset Date: 07/13/16 Current Visit: No Status: Chronic Plan: Continue PPI Qualifiers: Esophagitis presence: esophagitis presence not specified Qualified Code(s): K21.9 - Gastro-esophageal reflux disease without esophagitis (4) Hypertension Onset Date: 07/13/16 Current Visit: No Status: Chronic Plan: Antihypertensives continued titrate as needed Hydralazine as needed Qualifiers: Hypertension type: essential hypertension (5) Hypothyroidism Onset Date: 07/13/16 Current Visit: No Status: Chronic Plan: Continue thyroid replacement Will get a TSH level Will also get lipid panel and an A1c in a.m. Qualifiers: Hypothyroidism type: acquired Qualified Code(s): E03.9 - Hypothyroidism, unspecified Discharge Plan: Home Plan to discharge in: 24 Hours - Advance Directives Does patient have a Living Will: No Does patient have a Durable POA for Healthcare: Yes - Code Status/Comfort Care Code Status: Full Code Time Spent Managing Pts Care (In Minutes): 54
[2023-09-25] MEDS ORDERED: HYDRALAZINE HCL 20 MG/ML VIAL IV PRN (20:52)
[2023-09-25] MEDS ORDERED: TEMAZEPAM 15 MG CAP PO PRN (20:53)
[2023-09-25] MEDS ORDERED: ALPRAZOLAM 0.5 MG TABLET PO SCH (21:00)
[2023-09-25] MEDS ORDERED: DOCUSATE NA 100 MG CAP PO SCH (21:00)
[2023-09-25] MEDS ORDERED: ATORVASTATIN 40 MG TAB PO SCH (21:00)
[2023-09-25] MEDS ORDERED: lisinopriL 20 MG TAB PO SCH (21:00)
[2023-09-25] MEDS ORDERED: ENOXAPARIN 40 MG/0.4 ML SQ SCH (21:00)
[2023-09-25 22:14] VITALS: BP 136/64; TEMP 98.6; O2SAT 98
[2023-09-26] MEDS ORDERED: LEVOTHYROXINE SOD 0.075 MG TAB PO SCH (06:00)
[2023-09-26] MEDS ORDERED: PANTOPRAZOLE 40MG TABLET PO SCH (06:30)
[2023-09-26] MEDS ORDERED: ASPIRIN EC 81 MG TAB PO SCH (09:00)
== END 2023-09-25 21:40 | disposition left against medical advice (07) ==
LOC: ER 15:20 → ERHOLD 18:09
PROVIDERS: ADMIT Family Medicine; ATTEND Hospitalist
DX: I20.0 Unstable angina (principal); I10 Essential (primary) hypertension; E03.9 Hypothyroidism, unspecified; F32.A Depression, unspecified; F41.9 Anxiety disorder, unspecified; K21.9 Gastro-esophageal reflux disease without esophagitis; Z86.73 Personal history of transient ischemic attack (TIA), and cerebral infarction without residual deficits; Z88.5 Allergy status to narcotic agent
CPT/HCPCS: 36415; 71045; 80048; 83880; 84484; 85025; 93005; 94760; G0378

== ENCOUNTER 2024-05-27 05:51 | Day surgery (SDC) | payer OTHER ==
[2024-05-26 09:06] LABS: Absolute Basophils 0.1 K/uL (0-0.5); Absolute Eosinophils 0.2 K/uL (0-0.5); Absolute Lymphocytes (CBC) 1.5 K/uL (0.7-4.9); Absolute Monocytes 0.4 K/uL (0.1-1.3); Absolute Neutrophil 3.5 K/uL (1.8-8.0); Basophils % 1.4 % (0-1.3); Eosinophils % 3.6 % (0-4.4); Hematocrit 39.4 % (36.0-45.0); Hemoglobin 12.8 g/dL (12.0-15.0); Lymphocytes % 26.8 % (15.3-44.8); MCH 30.3 pg (27.0-35.0); MCHC 32.4 g/dL (32.0-36.0); MCV 93.6 fL (80-100); MPV 7.8 fL (7.6-11.3); Monocytes % 6.9 % (3.3-12.3); Neutrophils % 61.3 % (41.7-73.7); Platelets 305 thou/uL (152-406); RBC Red Blood Cell Count 4.21 M/uL (3.86-4.86); Red Cell Distribution Width 13.8 % (12.1-15.2)
--- NOTE | 2024-05-26 09:07 | RAD REPORT ---
EXAM: Chest Pa And Lat (2 Views) HISTORY: Pre op pending knee arthroplasty COMPARISON: 09/25/2023 FINDINGS: LUNGS/PLEURA: The lungs are clear. No pleural effusions or pneumothorax. No pulmonary edema. Eventrat ion of the right hemidiaphragm. MEDIASTINUM: The mediastinal silhouette is within normal limits. CARDIAC: The cardiac silhouette is within normal limits. UPPER ABDOMEN: No significant abnormality. BONES: No acute fracture. LINES/TUBES/OTHER: N/A IMPRESSION: No evidence of acute cardiopulmonary disease
[2024-05-26 09:20] LABS: Anion Gap 6.3 mEq/L (5.0-15.0); PT Prothrombin Time 11.5 SECONDS (9.4-12.5); PTT, Activated Partial Thromb 34.2 SECONDS (24.3-36.9); Potassium 4.3 mEq/L (3.5-5.1); Protime INR 1.03
[2024-05-27] MEDS: Ringers Lactate 1,000 ML IV ONE ×2 (06:05→09:00)
[2024-05-27] MEDS: CELECOXIB 100 MG CAPSULE ONE (06:15)
[2024-05-27] MEDS ORDERED: LIDOCAINE 2% MPF 5 ML VIAL ONE (06:15)
[2024-05-27] MEDS: ACETAMINOPHEN 500 MG TAB ONE (06:15)
[2024-05-27] MEDS ORDERED: propofoL 200 MG/20 ML VIAL IV ONE (06:15)
[2024-05-27] MEDS: GABAPENTIN 100 MG CAP ONE (06:15)
[2024-05-27] MEDS ORDERED: FENTANYL CITR 100 MCG/2 ML ONE (06:15)
[2024-05-27] MEDS ORDERED: MIDAZOLAM HCL 2 MG/2 ML INJ ONE (06:15)
[2024-05-27] MEDS: Oxycodone HCl/Acetaminophen 5/325 MG TAB ONE (06:15)
[2024-05-27] MEDS ORDERED: KETAMINE HCL IN 0.9 % NACL 50 MG/5 ML SYRINGE IV ONE (06:15)
[2024-05-27] MEDS: LIDOCAINE 1% MPF 5 ML VIAL ONE (06:26)
[2024-05-27] MEDS: dexAMETHasone 4 MG/ML VIAL ONE (06:26)
[2024-05-27] MEDS: EPINEPHRINE 1 MG/ML VIAL ONE (06:26)
[2024-05-27] MEDS: DEXMEDETOMIDINE HCL 200 MCG/2 ML VIAL ONE (06:27)
[2024-05-27] MEDS: BUPIVACAINE 0.5% PF 10 ML VIAL ONE (06:28)
[2024-05-27] MEDS: BUPIVACAINE 0.25% PF 30 ML VIAL ONE (06:29)
[2024-05-27] MEDS: MAGNESIUM SULFATE 1 gm IVPB 1 GM/100 ML BAG IV ONE (06:29)
[2024-05-27] MEDS: TRANEXAMIC ACID 1,000 MG/10 ML VIAL IV ONE (07:00)
[2024-05-27] MEDS: CEFAZOLIN SODIUM 2 GM/VIAL ONE (07:55)
[2024-05-27] MEDS ORDERED: HYDRALAZINE HCL 20 MG/ML VIAL ONE (08:14)
[2024-05-27] MEDS ORDERED: ONDANSETRON 4 MG/2 ML VIAL ONE (08:17)
[2024-05-27] MEDS ORDERED: EPHEDRINE SULF 50 MG/ML VIAL ONE (09:29)
[2024-05-27] MEDS ORDERED: ACETAMINOPHEN 325 MG TABLET PO PRN (10:17)
[2024-05-27] MEDS ORDERED: ONDANSETRON 4 MG/2 ML VIAL IV PRN (10:17)
--- NOTE | 2024-05-27 10:17 | P.BOP ---
Preoperative diagnosis: Left knee osteoarthritis Postoperative diagnosis: Left knee osteoarthritis Primary procedure: Left total knee arthroplasty Technical Documentation Specialist: NONE,NONE Estimated blood loss: 40 cc Specimen: Left knee bone remnants Findings: See dictation Anesthesia: General Complications: None Implants: Biomet Apolinar Persona 6 CR femur, D tibia, 10 CR poly, 32 patella Fluids & blood products: Per anesthesia record; tourniquet time 77 minutes at 300 mmHg Transferred to: Recovery Room Condition: Good
[2024-05-27] MEDS ORDERED: TRAMADOL HCL 50 MG TAB PO PRN (10:20)
--- NOTE | 2024-05-27 10:24 | P.OP ---
Preoperative diagnosis: Left knee osteoarthritis Postoperative diagnosis: Same Primary procedure: Left total knee arthroplasty Anesthesia: General Estimated blood loss: 40 cc Specimen: Left knee bone remnants Findings: See dictation Operative Technique: Indication For Procedure: Carlie is a 68 year-old female presenting to my clinic with signs, symptoms and x-ray findings consistent with severe left knee osteoarthritis. I discussed with the patient at length risks and benefits associated with operative and nonoperative treatment. She had failed conservative treatment measures and had significant difficulties with ADLs secondary to her pain. We discussed operative treatment and elected to proceed with left total knee arthroplasty. She expressed understanding and elected to proceed with operative treatment. Description Of Procedure: After informed consent was obtained, the patient was identified in the preoperative holding area. The left lower extremity was marked. The patient was then taken to the PACU where she underwent a left lower extremity adductor canal block performed by Anesthesia. She was then taken to the operating room, transferred to the operating table in supine fashion, and placed under general anesthesia. The left lower extremity was then prepped and draped in usual sterile fashion. A time-out was initiated. The correct patient and procedure were confirmed and identified. The patient did receive her preoperative prophylactic antibiotics. The left lower extremity was then exsanguinated and tourniquet was inflated to 300 mmHg. Approximately 15 cm longitudinal incision was made centered over the anterior aspect of the left knee. Dissection was then taken to the extensor mechanism and a medial parapatellar arthrotomy was performed. The patella was everted and dislocated laterally and the knee was flexed in the fat pad. Medial and lateral meniscus and ACL were all excised exposing the distal femur. Excess hypertrophic syno vium was also excised within the suprapatellar pouch. Calcification was excised from the distal quadriceps tendon posteriorly. The patient had an MRI of her left knee preoperatively for surgical planning and creation of cutting blocks. The cutting block was then placed over the distal femur and pins were then placed. The distal femoral cutting block was then placed over the pins. An marcos wing was then used to ensure proper depth cut and the distal femur was then cut. The chamfer cutting guide was then placed over the distal end of the femur. Anterior, posterior cuts as well as anterior and posterior chamfer cuts were then made again confirming proper depth of the cut using an Marcos wing. Excess bone remnants were then sent to pathology for further evaluation. Next, attention was taken to the proximal tibia. A tibial jig and tibial cutting block was then placed on proximal aspect of the left tibia and locked into position. Pins were then placed and alignment guide was then used to confirm proper alignment of the cut and then coronal and sagittal planes. Once this was confirmed, the cutting jig was placed over the pins and the proximal tibia was cut. Sizing trays were then selected and size 10 mm spacer was used and there was good overall balance in flexion and extension. Next, the trial implants were then placed using the size 6 standard CR femur and a size D tibia and an 10 mm CR poly. There was overall good range of motion and good stability. The trial implants were then removed. The wound was then irrigated thoroughly with normal saline and the knee was then injected with 20 cc of 0.5% Marcaine both in the posterior capsule and medial and lateral gutters as well as quadriceps tendon and periosteum. The tibia was then punched. The femur was drilled. The cement was then prepared on the back table. Cement was then placed first on the tibial surface followed by size D tibia. Excess cement was removed with Hibernia elevators. Size 6 standard CR femur was then placed on the distal femur after cement was placed on the distal femur. Excess cement was then removed and a size 10 mm CR trial poly was then placed. The knee was held in extension as the cement hardened. Undersurface of the patella was prepared debriding osteophytes using rongeurs as well as osteophytes.. Cement was placed on the undersurface of the patella after it was cut and a size 32 patella was placed. Once the cement was hardened, the knee was ranged, there was good overall stability both in flexion, extension and as well as stability with varus and valgus stresses. Trial poly was then removed and a size 10 mm CR poly was then placed and locked into position. The knee was then ranged again. There was good overall range of motion both for flexion and extension with good stability. The wound was then irrigated again thoroughly with normal saline using pulse lavage. Tourniquet was let down. Hemostasis was achieved using Bovie electrocautery. Extensor mechanism was then approximated using a #1 Vicryl both in interrupted and running fashion. The fascia was then approximated using 0 Vicryl. Subcutaneous tissue was approximated with a 2-0 Vicryl. Skin was approximated using oliver. Sterile dressings were applied. The patient was awakened and transferred back in stable condition Complications: None Implants: Biomet Apolinar persona 6 CR femur, D tibia, 32 patella, 10 CR poly Fluids & blood products: Per anesthesia record; tourniquet time 77 minutes at 300 mmHg Transferred to: Recovery Room Condition: Good
[2024-05-27] MEDS: HYDROMORPHONE HCL 1 MG/ML INJ ONE (10:57)
--- NOTE | 2024-05-27 11:04 | RAD REPORT ---
Exam:Knee Left 2 View HISTORY: Left knee surgery FINDINGS: No fracture or dislocation seen Postoperative changes left knee arthroplasty. The prosthesis is in good position.
[2024-05-27 11:10] LABS: Hematocrit 39.7 % (36.0-45.0); Hemoglobin 12.8 g/dL (12.0-15.0)
[2024-05-27 11:11] VITALS: O2SAT 98
[2024-05-27 13:20] VITALS: BMI 38.9
[2024-05-27] MEDS ORDERED: FLU (Fluarix Triv) TS24-25(6MOS UP)/PF 45 MCG/0.5 ML Syringe IM ONE (13:30)
[2024-05-27] MEDS ORDERED: PNEUMOCOCCAL VACCINE 0.5 ML IMVAC ONE (14:00)
[2024-05-27] MEDS: CEFAZOLIN SODIUM 2 GM in NA CHLORIDE 0.9% 100 ML IVPB SCH (17:55)
[2024-05-27] MEDS: HYDROCODONE/APAP 7.5/325 MG TAB PO PRN (20:29)
[2024-05-27] MEDS: CITALOPRAM 10 MG TABLET PO SCH (20:30)
[2024-05-28 05:41] LABS: Hematocrit 34.9 % (36.0-45.0); Hemoglobin 11.8 g/dL (12.0-15.0)
[2024-05-28] MEDS: ENOXAPARIN 30 MG/0.3 ML SQ SCH (06:22)
[2024-05-28] MEDS: lisinopriL 20 MG TAB PO SCH (08:14)
[2024-05-28] MEDS: CELECOXIB 100 MG CAPSULE PO SCH (08:15)
[2024-05-28] MEDS: DOCUSATE NA 100 MG CAP PO PRN (08:15)
[2024-05-28 12:44] VITALS: BP 148/79; TEMP 98.7
== END 2024-05-28 13:55 | disposition home health service (06) ==
LOC: OR 05:51 → 2ND 10:17 → OR 05-28 13:55
PROVIDERS: ATTEND Orthopaedic Surgery Sports Medicine
PROC: 0SRD0J9 Replacement of Left Knee Joint with Synthetic Substitute, Cemented, Open Approach (ICD-10-PCS; principal; 2024-05-27 08:00)
DX: M17.12 Unilateral primary osteoarthritis, left knee (principal)
CPT/HCPCS: 93005; 85025; 80048; 36415 ×3; 85610; 88305; 88311; 85730; 85018 ×2; 85014 ×2; 71046; 73560; 97110 ×2; 97116 ×3; 97139; 97161; 97530 ×2; 94010; 27447; C1776; J3475; J0360; J2704; J1100; J2003 ×2; J1650; J2250; J3010; J0171; J1171; J2405; J7120 ×2

== ENCOUNTER 2024-07-05 11:18 | Emergency (ER) | payer OTHER ==
[2024-07-05] MEDS ORDERED: ASPIRIN 81 MG CHEWABLE TABLET ONE (11:46)
[2024-07-05 11:49] LABS: Absolute Eosinophils 0.2 K/uL (0-0.5); Absolute Lymphocytes (CBC) 1.5 K/uL (0.7-4.9); Absolute Monocytes 0.3 K/uL (0.1-1.3); Absolute Neutrophil 1.4 K/uL (1.8-8.0); Eosinophils % 6.7 % (0-4.4); Hematocrit 36.2 % (36.0-45.0); Hemoglobin 11.7 g/dL (12.0-15.0); Lymphocytes % 42.5 % (15.3-44.8); MCH 29.8 pg (27.0-35.0); MCHC 32.2 g/dL (32.0-36.0); MCV 92.6 fL (80-100); MPV 7.6 fL (7.6-11.3); Monocytes % 8.3 % (3.3-12.3); Neutrophils % 41.5 % (41.7-73.7); Platelets 264 thou/uL (152-406); RBC Red Blood Cell Count 3.92 M/uL (3.86-4.86); Red Cell Distribution Width 13.5 % (12.1-15.2)
[2024-07-05 11:53] LABS: PT Prothrombin Time 12.4 SECONDS (9.4-12.5); Protime INR 1.11
[2024-07-05 12:09] LABS: ALT/SGPT 26 U/L (13-56); AST/SGOT 24 U/L (15-37); Albumin 3.1 g/dL (3.4-5.0); Albumin/Globulin Ratio 0.8 (1.1-1.8); Alkaline Phosphatase 63 U/L (45-117); BUN Blood Urea Nitrogen 10 mg/dL (7-18); Bicarbonate 27 mEq/L (21-32); Bilirubin Total 0.3 mg/dL (0.2-1.0); Glomerular Filtration Rate 94 ml/min (=/>90); Glucose Level 98 mg/dL (74-106); Magnesium 2.2 mg/dL (1.6-2.4); NT PRO-BNP 34 pg/mL (<125); Protein, Total 7.1 g/dL (6.4-8.2); Sodium Level 137 mEq/L (136-145); Troponin High Sensitivity 4.4 pg/mL (<58.9)
[2024-07-05 12:10] LABS: Bilirubin Direct < 0.2 mg/dL (0-0.2); Bilirubin Indirect, Calculated 0.1 mg/dL (0.2-0.8)
--- NOTE | 2024-07-05 12:20 | RAD REPORT ---
EXAMINATION: ONE VIEW CHEST XR CLINICAL INDICATION: CHEST PAIN TECHNIQUE: Frontal chest projection is submitted. Examination is limited by patient positioning and t echnique. COMPARISON: 05/26/2024 FINDINGS: The lungs are well inflated and clear. The heart is upper limit of normal in size. No displaced fract ures identified. IMPRESSION: No acute intrathoracic abnormalities.
[2024-07-05 12:51] LABS: SARS-CoV-2 Antigen CONTROL BLUE LINE VIS/BG OK; SARS-CoV-2 Antigen Rapid Res Negative (Negative)
[2024-07-05] MEDS ORDERED: MAGNES/ALUMIN/SIMET 30ML UCUP ONE (14:25)
[2024-07-05] MEDS ORDERED: LIDOCAINE VISCOUS 2% 10ML ORAL SOLN ONE (14:25)
[2024-07-05] MEDS ORDERED: SUCRALFATE 1 GM TABLET ONE (15:11)
--- NOTE | 2024-07-05 16:06 | RAD REPORT ---
EXAM: CT CHEST, ABDOMEN WITH CONTRAST CLINICAL INDICATION: epigastric pain, esophagitis? TECHNIQUE: CT chest, abdomen and pelvis was performed, following the administration of contrast, as p er department protocol. Axial, sagittal and coronal reconstructions were obtained. One or more of the following dose reduction techniques were used: Automated exposure control, adjustment of the mA a nd/or kV according to patient size, and/or iterative reconstruction. Unless otherwise specified, incidental findings do not require dedicated imaging follow-up. COMPARISON: No prior exam. FINDINGS: LUNGS: Mild linear atelectasis in the right lung base. Lungs otherwise clear. Small hiatal hernia. PLEURA: No pleural effusion. No pneumothorax. MEDIASTINUM AND LYMPH NODES: No mediastinal mass or fluid collection. Normal size mediastinal, hilar, and axillary lymph nodes. OSSEOUS STRUCTURES AND CHEST WALL: Intact. LIVER: The liver demonstrates mild fatty infiltration. 3.5 cm cyst medial inferior right lobe of the liver. No focal lesion or biliary dilatation is seen. Cholecystectomy clips. PANCREAS: No mass, ductal dilation, or janeth-pancreatic fluid. SPLEEN: Normal size. No focal lesion. ADRENALS: Normal; no mass. KIDNEYS: Normal size and contour. No hydronephrosis. GASTROINTESTINAL TRACT: No bowel obstruction, free air, significant free fluid or abscess. LYMPH NODES: No lymphadenopathy. MUSCULOSKELETAL: Mild multilevel degenerative spondylosis. OTHER: IMPRESSION: Small hiatal hernia.
--- NOTE | 2024-07-05 16:14 | ER ---
Nurse's Notes [facility] Name: Carlie Barton Age: 68 yrs Sex: Female : 1955 Arrival Date: 07/05/2024 Time: 11:18 Bed 14 Private MD: Diagnosis: Chest pain, unspecified;Hiatal hernia Presentation: 07/05 11:29 Chief complaint: Patient states: she started having central chest pain and pressure ap3 last night that is worse when she coughs or breathes. patient currently rates her pain as a 9/10 on the pain scale. Coronavirus screen: Client presents with at least one sign or symptom that may indicate coronavirus-19. Ebola Screen: No symptoms or risks identified at this time. Initial Sepsis Screen: Does the patient meet any 2 criteria? No. Patient's initial sepsis screen is negative. Does the patient have a suspected source of infection? No. Patient's initial sepsis screen is negative. Risk Assessment: Do you want to hurt yourself or someone else? Patient reports no desire to harm self or others. Onset of symptoms was July 04, 2024. 11:29 Method Of Arrival: Ambulatory ap3 11:29 Acuity: ELSI 2 ap3 Triage Assessment: 11:31 General: Appears in no apparent distress. Behavior is calm, cooperative, appropriate ap3 for age. Pain: Complains of pain in xiphoid area and mid-sternal area Pain currently is 9 out of 10 on a pain scale. Pain began 1 day ago. Neuro: Level of Consciousness is awake, alert, obeys commands, Oriented to person, place, time, situation, Appropriate for age. Cardiovascular: Reports chest pain, Patient's skin is warm and dry. Respiratory: Reports cough that is pain with cough pain with respiration Airway is patent Respiratory effort is even, unlabored, Respiratory pattern is regular, symmetrical. 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 - Infectious Disease History:: Denies. - Social history:: Smoking status: Patient denies any tobacco usage or history of. Screenin:32 [facility] ED Fall Risk Assessment (Adult) History of falling in the last 3 months, ap3 including since admission No falls in past 3 months (0 pts) Confusion or Disorientation No (0 pts) Intoxicated or Sedated No (0 pts) Impaired Gait Yes (1 pt) Mobility Assist Device Used Yes (1 pt) Altered Elimination No (0 pt) Score/Fall Risk Level 0 - 2 = Low Risk Oriented to surroundings, Maintained a safe environment, Educated pt \T\ family on fall prevention, incl call for assistance when getting out of bed, Assessed \T\ reinforced patient's understanding of fall precautions, Hourly rounding (assess needs \T\ fall precautionary measures) done, Used ambulatory aids as needed (educated on \T\ assisted with), Used gait belt as appropriate. Abuse screen: Denies threats or abuse. Nutritional screening: No deficits noted. Tuberculosis screening: No symptoms or risk factors identified. Assessment: 11:33 Pain: Pain does not radiate. ap3 13:36 Reassessment: Patient and/or family updated on plan of care and expected duration. Pain ap3 level reassessed. Patient is alert, oriented x 3, equal unlabored respirations, skin warm/dry/pink. General: Appears in no apparent distress. Behavior is calm, cooperative, appropriate for age. Vital Signs: 11:29 BP 128 / 64; Pulse 60; Resp 18; Temp 97.3(O); Pulse Ox 99% on R/A; Weight 84.82 kg; ap3 Pain 9/10; 12:14 Pulse 58; Resp 17; Pulse Ox 98% on R/A; ap3 13:31 BP 135 / 65; Pulse 61; Resp 17; Pulse Ox 100% ; ap3 15:15 BP 165 / 71; Pulse 65; Resp 16; Pulse Ox 100% on R/A; ap3 11:29 Pain Scale: Adult ap3 ED Course: 11:19 Patient arrived in ED. ra3 11:22 Tila Fermin PA-C is PHCP. sb4 11:22 Evan Palafox MD is Attending Physician. sb4 11:29 Eloisa Lopez, VIDA is Primary Nurse. ap3 11:31 Triage completed. ap3 11:32 Arm band placed on right wrist. ap3 11:32 Patient has correct armband on for positive identification. Bed in low position. Call ap3 light in reach. Side rails up X 1. Client placed on continuous cardiac and pulse oximetry monitoring. NIBP monitoring applied. lan analyst on. Pulse ox on. NIBP on. 11:32 Patient maintains SpO2 saturation greater than 95% on room air. ap3 11:43 Flu Sent. ap3 11:43 SARS RAPID Sent. ap3 11:43 Initial lab(s) drawn, by me, sent to lab. COVID swab sent to lab. Flu and/or RSV swab ap3 sent to lab. Inserted saline lock: 20 gauge in right antecubital area, using aseptic technique. Blood collected. Flushed with 10 mL NS. 11:55 EKG done, by ED staff, reviewed by Tila Fermin PA-C. ap3 12:11 XRAY Chest (1 view) In Process Unspecified. EDMS 13:31 No provider procedures requiring assistance completed. ap3 15:45 CT Chest Abdomen W/ Contrast In Process Unspecified. EDMS 16:12 Eb Howell MD is Referral Physician. sb4 16:13 Referral Physician role handed off by Eb Howell MD sb4 16:13 Deric Patterson MD is Referral Physician. sb4 16:48 Provided Education on: discharge instructions. ap3 16:48 IV discontinued, intact, bleeding controlled, No redness/swelling at site. Pressure ap3 dressing applied. Administered Medications: 11:49 Drug: Aspirin PO Chewable Tablet 324 mg PO once; 81 mg tablets x 4 Route: PO; ap3 16:48 Follow up: Response: No adverse reaction ap3 14:29 Drug: GI Cocktail without - (Maalox PO 30 ml, Lidocaine Mucous Membrane 2 % 15 ap3 ml) PO once Route: PO; 16:48 Follow up: Response: No adverse reaction ap3 15:15 Drug: Sucralfate PO Suspension 1 grams PO once Route: PO; ap3 16:48 Follow up: Response: No adverse reaction ap3 Medication: 11:33 VIS not applicable for this client. ap3 Outcome: 16:13 Discharge ordered by . sb4 16:47 Discharged to home ambulatory, with family, ap3 16:47 Condition: good 16:47 Discharge instructions given to patient, family, Instructed on discharge instructions, follow up and referral plans. medication usage, Demonstrated understanding of instructions, follow-up care, medications, Prescriptions given X 2, 16:49 Patient left the ED. ap3 Signatures: Dispatcher [employer] Eloisa Carolina, RN RN ap3 Tila Fermin PA-C PA-C sb4 Kimberly Hill
--- NOTE | 2024-07-05 16:14 | EDPHYS ---
Physician Documentation [facility] Name: Carlie Barton Age: 68 yrs Sex: Female : 1955 Arrival Date: 07/05/2024 Time: 11:18 Bed 14 Private MD: ED Physician Evan Palafox HPI: 07/05 11:28 This 68 yrs old Female presents to ER via Unassigned with complaints of Chest sb4 Pressure. 11:28 Onset: The symptoms/episode began/occurred last night. sb4 11:29 substernal chest pain that began last night while at rest. does not radiate. pain sb4 worsens with inspiration, has also been sick with cough and congestion. no n/v/d. no dizziness. states she has seen a plant maintenance engineer recently, had blood work and a holter monitor, was told everything was normal. 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 - Infectious Disease History:: Denies. - Social history:: Smoking status: Patient denies any tobacco usage or history of. ROS: 11:29 Constitutional: Negative for fever, chills, and weight loss, sb4 11:29 ENT: Positive for rhinorrhea, 11:29 Cardiovascular: Positive for chest pain, with cough, 11:29 Respiratory: Positive for cough, 11:29 All other systems are negative, Exam: 12:53 Head/Face: Normocephalic, atraumatic. Eyes: Extra-ocular motions intact. Periorbital sb4 areas with no swelling, redness, or edema. ENT: Mucous membranes moist. Cardiovascular: Regular rate and rhythm with a normal S1 and S2. Respiratory: No increased work of breathing, no retractions or nasal flaring. Abdomen/GI: Soft, non-tender, no distension. Skin: Warm, dry with normal turgor. Normal color with no rashes, no lesions, and no evidence of cellulitis. 12:53 Constitutional: The patient appears alert, awake, pale, Vital Signs: 11:29 BP 128 / 64; Pulse 60; Resp 18; Temp 97.3(O); Pulse Ox 99% on R/A; Weight 84.82 kg; ap3 Pain 9/10; 12:14 Pulse 58; Resp 17; Pulse Ox 98% on R/A; ap3 13:31 BP 135 / 65; Pulse 61; Resp 17; Pulse Ox 100% ; ap3 15:15 BP 165 / 71; Pulse 65; Resp 16; Pulse Ox 100% on R/A; ap3 11:29 Pain Scale: Adult ap3 MDM: 11:22 Medical Screening Exam initiated sb4 13:17 Scoring Tools HEART Score: History: ECG: Age: Risk Factors: 1 or 2 risk factors (1), sb4 Troponin: Total Score = 4. Counseling: I had a detailed discussion with the patient and/or guardian regarding the historical points, exam findings, and any diagnostic results supporting the discharge/admit diagnosis, lab results, radiology results. 14:21 Data reviewed: vital signs, nurses notes, lab test result(s), EKG, radiologic studies, sb4 and as a result, I will discharge patient. Historians other than the Patient: Daughter/Son: son. Care significantly affected by the following chronic conditions: Hypertension. Special discussion: Based on the patient's history, exam, and Dx evaluation, there is no indication for emergent intervention or inpatient Tx. It is understood by the patient/guardian that if the Sx's persist or worsen they need to return immediately for re-evaluation. 15:03 ED course: upon further discussion with patient, she has had this pain intermittently sb4 for several months now. she has seen GI, had negative abdominal imaging and negative colonoscopy. 16:23 Differential diagnosis: angina, NC, GERD, pneumonia, costochondritis, pleurisy. sb4 07/05 11:28 Order name: Basic Metabolic Panel; Complete Time: 12:11 sb4 07/05 11:28 Order name: CBC with Diff; Complete Time: 11:53 sb4 07/05 11:28 Order name: LFT's; Complete Time: 12:11 sb4 07/05 11:28 Order name: Magnesium; Complete Time: 12:11 sb4 07/05 11:28 Order name: NT PRO-BNP; Complete Time: 12:11 sb4 07/05 11:28 Order name: PT-INR; Complete Time: 11:53 sb4 07/05 11:28 Order name: Troponin HS; Complete Time: 12:11 sb4 07/05 11:28 Order name: SARS RAPID; Complete Time: 12:52 sb4 07/05 11:28 Order name: Flu; Complete Time: 12:52 sb4 07/05 13:09 Order name: Troponin High Sensitivity: at 1345; Complete Time: 14:20 sb4 07/05 11:28 Order name: XRAY Chest (1 view); Complete Time: 12:20 sb4 07/05 15:01 Order name: CT Chest Abdomen W/ Contrast; Complete Time: 16:07 sb4 07/05 11:28 Order name: Cardiac monitoring; Complete Time: 11:33 sb4 07/05 11:28 Order name: EKG - Nurse/Tech; Complete Time: 11:55 sb4 07/05 11:28 Order name: IV Saline Lock; Complete Time: 11:43 sb4 07/05 11:28 Order name: Labs collected and sent; Complete Time: 11:43 sb4 07/05 11:28 Order name: O2 Per Protocol; Complete Time: 11:33 sb4 07/05 11:28 Order name: O2 Sat Monitoring; Complete Time: 11:33 sb4 EC:55 Rate is 54 beats/min. Rhythm is irregular, Sinus bradycardia. CA interval is normal at sb4 142 msec. QRS interval is normal at 88 msec. QT interval is normal at 442 msec. No Q waves. T waves are Normal. No ST changes noted. Clinical impression: No evidence of ischemia. Interpreted by me. Reviewed by me. Administered Medications: 11:49 Drug: Aspirin PO Chewable Tablet 324 mg PO once; 81 mg tablets x 4 Route: PO; ap3 16:48 Follow up: Response: No adverse reaction ap3 14:29 Drug: GI Cocktail without - (Maalox PO 30 ml, Lidocaine Mucous Membrane 2 % 15 ap3 ml) PO once Route: PO; 16:48 Follow up: Response: No adverse reaction ap3 15:15 Drug: Sucralfate PO Suspension 1 grams PO once Route: PO; ap3 16:48 Follow up: Response: No adverse reaction ap3 Disposition Summary: 07/05/24 16:13 Discharge Ordered Notes: Location: Home sb4 Problem: new sb4 Symptoms: have improved sb4 Condition: Stable sb4 Diagnosis - Chest pain, unspecified sb4 - Hiatal hernia sb4 Followup: sb4 - With: Eb Howell MD - When: 2 - 3 days - Reason: Recheck today's complaints, Re-evaluation by your physician Followup: sb4 - With: Deric Patterson MD - When: As needed - Reason: Further diagnostic work-up, Recheck today's complaints, Re-evaluation by your physician Discharge Instructions: - Discharge Summary Sheet sb4 - Hiatal Hernia sb4 Forms: - Patient Portal Instructions sb4 - Leadership Thank You Letter sb4 Prescriptions: - Zanaflex 4 mg Oral Tablet - take 1 tablet ORAL route every 8 hours As needed; 20 tablet; Refills: 0, sb4 Product Selection Permitted - Pepcid 20 mg Oral Tablet - take 1 tablet ORAL route once daily; 20 tablet; Refills: 0, Product Selection sb4 Permitted Addendum: 07/09/2024 12:45 Co-signature as Attending Physician, Evan Palafox MD I agree with the assessment and c medrano plan of care. Signatures: Dispatcher [employer] EDKY Evan Palafox MD MD cha Prokisch, Amanda, RN RN ap3 Tila Fermin PA-C PA-C sb4 Corrections: (The following items were deleted from the chart) 07/05 11:28 11:28 BASIC METABOLIC PANEL+C.LAB.BRZ ordered. EDMS EDMS 11:28 11:28 CBC+H.LAB.BRZ ordered. EDMS EDMS 11:28 11:28 HEPATIC FUNCTION+C.LAB.BRZ ordered. EDMS EDMS 11:28 11:28 MAGNESIUM+C.LAB.BRZ ordered. EDMS EDMS 11:28 11:28 PROBNP+C.LAB.BRZ ordered. EDMS EDMS 11:28 11:28 PROTIME (+INR)+COAG.LAB.BRZ ordered. EDMS EDMS 11:28 11:28 Troponin High Sensitivity+C.LAB.BRZ ordered. EDMS EDMS 11:28 11:28 SARS-COV-2 Antigen Rapid+I.LAB.BRZ ordered. EDMS EDMS 11:28 11:28 Influenza Screen (A \T\ B)+BA.LAB.BRZ ordered. EDMS EDMS 11:28 11:28 Chest Single View+RAD.RAD.BRZ ordered. EDMS EDMS
[2024-07-05 17:01] VITALS: TEMP 97.3
[2024-07-05 17:04] VITALS: O2SAT 100
[2024-07-05 17:06] VITALS: BP 165/71
--- NOTE | 2024-07-06 11:08 | EKG ---
Test Date: 2024-07-05 Test Time: 11:52:35 Pole Truck Driver: ALP MEASUREMENT RESULTS: Intervals: Rate: 54 MD: 142 QRSD: 88 QT: 442 QTc: 419 [place]: P: 14 MD: 142 QRS: 39 T: 14 INTERPRETIVE STATEMENTS: Sinus bradycardia with sinus arrhythmia Low voltage QRS Borderline ECG Compared to ECG 05/26/2024 09:41:28 T-wave abnormality no longer present Electronically Signed On 07-06-24 11:07:06 FINAL FINISHER by Conrad De Dios
== END 2024-07-05 16:49 | disposition home or self-care (01) ==
LOC: ER 11:18
DX: R07.9 Chest pain, unspecified (principal); K44.9 Diaphragmatic hernia without obstruction or gangrene; R05.9 Cough, unspecified; I10 Essential (primary) hypertension; Z11.52 Encounter for screening for COVID-19
CPT/HCPCS: 93005; 85025; 80048; 36415; 83735; 85610; 80076; 84484 ×2; 83880; 87804 ×2; 74160; 71260; 71045; 99285; 87811; Q9967

== ENCOUNTER 2025-05-10 06:51 | Emergency (ER) | payer OTHER ==
[2025-05-10] MEDS ORDERED: ONDANSETRON 4 MG/2 ML VIAL ONE (07:21)
[2025-05-10] MEDS ORDERED: NA CHLORIDE 0.9% 500 ML ONE (07:22)
[2025-05-10 07:29] LABS: Absolute Lymphocytes (CBC) 0.8 K/uL (0.7-4.9); Hematocrit 42.3 % (36.0-45.0); Hemoglobin 14.0 g/dL (12.0-15.0); MCH 30.4 pg (27.0-35.0); MCHC 33.2 g/dL (32.0-36.0); MCV 91.6 fL (80-100); MPV 7.6 fL (7.6-11.3); Nucleated RBC Absolute Count 0.0 (0-0); Nucleated Red Blood Cells % 0.0 % (0-0); RBC Red Blood Cell Count 4.61 M/uL (3.86-4.86); White Blood Count 9.90 thou/uL (4.3-10.9)
[2025-05-10 07:46] LABS: ALT/SGPT 31.0 U/L (13-56); AST/SGOT 23.0 U/L (15-37); Albumin 3.7 g/dL (3.4-5.0); Albumin/Globulin Ratio 0.8 (1.1-1.8); Alkaline Phosphatase 81.0 U/L (45-117); Anion Gap 8.3 mEq/L (5.0-15.0); BUN Blood Urea Nitrogen 19.0 mg/dL (7-18); Globulin 4.4 g/dL (2.3-3.5); Glucose Level 115.0 mg/dL (74-106); Lipase 74.0 U/L (13-75); Potassium 4.3 mEq/L (3.5-5.1)
[2025-05-10] MEDS ORDERED: KETOROLAC 30 MG/ML INJ ONE (08:24)
--- NOTE | 2025-05-10 08:24 | RAD REPORT ---
EXAMINATION: CT ABDOMEN AND PELVIS WITH CONTRAST CLINICAL INDICATION: Abdominal pain TECHNIQUE: CT abdomen and pelvis was performed, after the administration of 100 cc Isovue-300.. Sagit enrike and coronal reconstructions were obtained. One or more of the following dose reduction techniques were used: Automated exposure control, adjustment of the mA and kV according to patient si ze, and iterative reconstruction. Unless otherwise specified, incidental findings do not require dedicated imaging follow-up. [id number]. Oral contrast was not given which limits evaluation of bowel and appendix. COMPARISON: .2023 FINDINGS: Cholecystectomy 3 cm cystic structure lies between the liver and second portion duodenum. This could represent a hepa tic cyst or duodenal diverticulum. The spleen, pancreas, adrenals and kidneys appear unremarkable No evidence of diverticulitis. Period fluid within nondilated small bowel Abnormal appendix not visualized No adnexal mass Mild spondylosis lumbar spine. Period small hiatal hernia : IMPRESSION: Fluid within nondilated small bowel may indicate an enteritis
[2025-05-10 09:02] LABS: Influenza A Ag Negative; Influenza B Ag Negative; SARS-CoV-2 Antigen Rapid Res Negative (Negative)
--- NOTE | 2025-05-10 09:10 | ER ---
Nurse's Notes [facility] Name: Carlie Barton Age: 69 yrs Sex: Female : 1955 Arrival Date: 05/10/2025 Time: 06:51 Bed 13 Private MD: Diagnosis: Other viral enteritis;Nausea with vomiting, unspecified;Diarrhea, unspecified Presentation: 05/10 07:17 Chief complaint: Patient states: abd pain and vomiting since 10pm last night, reports aa5 diarrhea and body aches since 0600 today. 07:17 Coronavirus screen: vomiting. Ebola Screen: No symptoms or risks identified at this aa5 time. Initial Sepsis Screen: Does the patient meet any 2 criteria? No. Patient's initial sepsis screen is negative. Does the patient have a suspected source of infection? No. Patient's initial sepsis screen is negative. Risk Assessment: Do you want to hurt yourself or someone else? Patient reports no desire to harm self or others. Onset of symptoms was April 2025. 07:17 Acuity: ELSI 3 aa5 07:17 Method Of Arrival: Ambulatory aa5 Triage Assessment: 07:00 GI: Reports diarrhea, nausea. 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 - Infectious Disease History:: Denies. - Social history:: Smoking status: Patient denies any tobacco usage or history of. - Family history:: not pertinent. - Hospitalizations: : No recent hospitalization is reported. Screenin:[facility] ED Fall Risk Assessment (Adult) History of falling in the last 3 months, kb4 including since admission No falls in past 3 months (0 pts) Confusion or Disorientation No (0 pts) Intoxicated or Sedated No (0 pts) Impaired Gait No (0 pts) Mobility Assist Device Used No (0 pt) Altered Elimination No (0 pt) Score/Fall Risk Level 0 - 2 = Low Risk. Abuse screen: Denies threats or abuse. Denies injuries from another. Nutritional screening: No deficits noted. Tuberculosis screening: No symptoms or risk factors identified. Assessment: 07:20 Pain: Complains of pain in abdomen Pain currently is 5 out of 10 on a pain scale. kb4 07:20 General: Appears in no apparent distress. uncomfortable, Behavior is calm, cooperative. kb4 Neuro: Level of Consciousness is awake, alert, obeys commands, Oriented to person, place, time, situation. Cardiovascular: Patient's skin is warm and dry. Respiratory: Airway is patent Respiratory effort is even, unlabored, Respiratory pattern is regular, symmetrical. GI: Abdomen is non-distended. Derm: Skin is pink, warm \T\ dry. 08:05 Reassessment: Pt at radiology . aa5 08:20 Reassessment: c/o of abd pain 01/21, notified. kb4 08:56 Reassessment: Patient and/or family updated on plan of care and expected duration. Pain kb4 level reassessed. Patient is alert, oriented x 3, equal unlabored respirations, skin warm/dry/pink. Patient states feeling better. Pain: Pain currently is 1 out of 10 on a pain scale. Vital Signs: 07:15 BP 140 / 78; Pulse 70; Resp 18; Pulse Ox 99% on R/A; kb4 07:17 BP 140 / 78; Pulse 69; Resp 18 S; Temp 98(O); Pulse Ox 98% on R/A; Weight 82.55 kg (R); aa5 Height 5 ft. 0 in. (R); Pain 8/10; 08:54 BP 143 / 62; Pulse 66; Resp 18; Pulse Ox 98% on R/A; kb4 07:17 Body Mass Index 35.54 (82.55 kg, 152.4 cm) aa5 07:17 Pain Scale: Adult aa5 ED Course: 06:55 Patient arrived in ED. gm2 07:00 Ryder Mcdonald MD is Attending Physician. rn 07:17 Arm band placed on Patient placed in an exam room, on a stretcher. aa5 07:18 Ofelia Longoria, VIDA is Primary Nurse. kb4 07:20 Patient has correct armband on for positive identification. Bed in low position. Call kb4 light in reach. Side rails up X2. 07:26 Triage completed. aa5 07:26 CBC with Diff Sent. bc6 07:26 CMP Sent. bc6 07:26 Lipase Sent. bc6 07:26 Initial lab(s) drawn, by me, sent to lab. Inserted saline lock: 20 gauge in right bc6 antecubital area, using aseptic technique. Blood collected. Flushed with 10 mL NS. 08:12 CT Abd/Pelvis - IV Contrast Only In Process Unspecified. EDMS 09:36 No provider procedures requiring assistance completed. IV discontinued, intact, kb4 bleeding controlled, No redness/swelling at site. Pressure dressing applied. 09:37 Provided Education on: d/c instructions . kb4 Administered Medications: 07:27 Drug: Ondansetron IVP 4 mg IVP once; over 2 minutes Route: IVP; Site: right antecubital;kb4 07:41 Follow up: Response: No adverse reaction kb4 07:27 Drug: NS 0.9% IV 500 ml 500 ml IV at 1 bolus once; to be given as a bolus over 30 kb4 minutes Volume: 500 ml; Route: IV; Rate: 1 bolus; Site: right antecubital; 08:57 Follow up: Response: No adverse reaction; IV Status: Completed infusion kb4 08:37 Drug: Ketorolac IVP 15 mg IVP once Route: IVP; Site: right antecubital; kb4 08:56 Follow up: Response: No adverse reaction kb4 09:30 Drug: Diphenoxylate-Atropine PO 1 tabs PO once Route: PO; kb4 09:30 Follow up: Response: Medication Administered at Departure kb4 Medication: 07:20 VIS not applicable for this client. kb4 Outcome: 09:10 Discharge ordered by . rn 09:36 Discharged to home ambulatory, kb4 09:36 Condition: good 09:36 Discharge instructions given to patient, family, Instructed on discharge instructions, follow up and referral plans. medication usage, Demonstrated understanding of instructions, follow-up care, medications, Prescriptions given X 1, 09:38 Patient left the ED. kb4 Signatures: Dispatcher [employer] EDMS Ryder Mcdonald MD MD rn Calderon, Audri RN RN aa5 Adina Hansen bc6 Suha Escobar gm2 Ofelia Longoria RN RN kb4 Corrections: (The following items were deleted from the chart) 07:28 07:17 BP 140 / 78; Pulse 69bpm; Resp 18bpm; Spontaneous; Pulse Ox 98% RA; Temp 98F aa5 Oral; 82.55 kg Reported; Height 5 ft. 0 in. Reported; BMI: 35.5; aa5
[2025-05-10 09:11] LABS: White Blood Cell Scan OK (OK)
--- NOTE | 2025-05-10 09:11 | EDPHYS ---
Physician Documentation [facility] Name: Carlie Barton Age: 69 yrs Sex: Female : 1955 Arrival Date: 05/10/2025 Time: 06:51 Bed 13 Private MD: ED Physician Ryder Mcdonald HPI: 05/10 08:01 This 69 yrs old Female presents to ER via Ambulatory with complaints of rn Nausea/Vomiting/Diarrhea, Abdominal Pain. 08:01 Patient reports 1 day of nausea vomiting diarrhea and abdominal cramping. 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 2 family members sick with similar symptoms. No blood in stool or hematemesis.. 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 - Infectious Disease History:: Denies. - Social history:: Smoking status: Patient denies any tobacco usage or history of. - Family history:: not pertinent. - Hospitalizations: : No recent hospitalization is reported. ROS: 08:01 Constitutional: Negative for fever, chills, and weight loss, Cardiovascular: Negative rn for chest pain, palpitations, and edema, Respiratory: Negative for shortness of breath, cough, wheezing, and pleuritic chest pain, Abdomen/GI: Positive for nausea/vomiting/diarrhea with abdominal cramping MS/Extremity: Negative for injury and deformity, Skin: Negative for injury, rash, and discoloration, Neuro: Negative for headache, weakness, numbness, tingling, and seizure, Exam: 08:01 Constitutional: This is a well developed, well nourished patient who is awake, alert, rn and in no acute distress. Cardiovascular: Regular rate and rhythm. No pulse deficits. Respiratory: No increased work of breathing, no retractions or nasal flaring. Abdomen/GI: Soft, non-tender, no peritoneal signs, no distention MS/ Extremity: Pulses equal, no cyanosis. Neuro: Awake and alert, GCS 15 Vital Signs: 07:15 BP 140 / 78; Pulse 70; Resp 18; Pulse Ox 99% on R/A; kb4 07:17 BP 140 / 78; Pulse 69; Resp 18 S; Temp 98(O); Pulse Ox 98% on R/A; Weight 82.55 kg (R); aa5 Height 5 ft. 0 in. (R); Pain 8/10; 08:54 BP 143 / 62; Pulse 66; Resp 18; Pulse Ox 98% on R/A; kb4 07:17 Body Mass Index 35.54 (82.55 kg, 152.4 cm) aa5 07:17 Pain Scale: Adult aa5 MDM: 07:00 Medical Screening Exam initiated rn 09:08 Differential diagnosis: Nonspecific abd pain, gastritis, pancreatitis, appendicitis, rn diverticulitis, viral gastroenteritis, gastroenteritis. Data reviewed: vital signs, nurses notes, lab test result(s), radiologic studies, CT scan, and as a result, I will discharge patient. Independent interpretation of the following test(s) in the Emergency Department CT Scan: My interpretation is CT abdomen pelvis images negative for pneumoperitoneum or free fluid per my interpretation. desk monitor: rate is 65 beats/min, Rhythm is normal sinus rhythm, regular, with no ectopy, Interpretation: normal rate, normal rhythm. Counseling: I had a detailed discussion with the patient and/or guardian regarding the historical points, exam findings, and any diagnostic results supporting the discharge/admit diagnosis, lab results, radiology results, the need for outpatient follow up, to return to the emergency department if symptoms worsen or persist or if there are any questions or concerns that arise at home. Response to treatment: the patient's symptoms have mildly improved after treatment, and as a result, I will discharge patient. Special discussion: I discussed with the patient/guardian in detail that at this point there is no indication for admission to the hospital. It is understood, however, that if the symptoms persist or worsen the patient needs to return immediately for re-evaluation. Special discussion: Based on the history and exam findings, there is no indication for further emergent testing or inpatient evaluation. I discussed with the patient/guardian the need to see the primary care provider for further evaluation of the symptoms. ED course: CT shows enteritis, given multiple sick contacts most likely viral enteritis, feels better, still having occasional cramping but told her and family would likely still feel slightly ill for the next couple days. Return precautions given and understood.. 05/10 07:15 Order name: CBC with Diff; Complete Time: 09:12 rn 05/10 07:15 Order name: CMP; Complete Time: 08:00 rn 05/10 07:15 Order name: Lipase; Complete Time: 08:00 rn 05/10 08:01 Order name: COVID-19 Ag + Flu A+B Ag; Complete Time: 09:06 rn 05/10 09:12 Order name: CBC Smear Scan; Complete Time: 09:12 EDMS 05/10 07:15 Order name: CT Abd/Pelvis - IV Contrast Only; Complete Time: 08:27 rn 05/10 07:15 Order name: IV Saline Lock; Complete Time: 07:26 rn 05/10 07:15 Order name: Labs collected and sent; Complete Time: : rn Administered Medications: 07:27 Drug: Ondansetron IVP 4 mg IVP once; over 2 minutes Route: IVP; Site: right antecubital;kb4 07:41 Follow up: Response: No adverse reaction kb4 07:27 Drug: NS 0.9% IV 500 ml 500 ml IV at 1 bolus once; to be given as a bolus over 30 kb4 minutes Volume: 500 ml; Route: IV; Rate: 1 bolus; Site: right antecubital; 08:57 Follow up: Response: No adverse reaction; IV Status: Completed infusion kb4 08:37 Drug: Ketorolac IVP 15 mg IVP once Route: IVP; Site: right antecubital; kb4 08:56 Follow up: Response: No adverse reaction kb4 09:30 Drug: Diphenoxylate-Atropine PO 1 tabs PO once Route: PO; kb4 09:30 Follow up: Response: Medication Administered at Departure kb4 Disposition Summary: 05/10/25 09:10 Discharge Ordered Notes: Location: Home rn Problem: new rn Symptoms: have improved rn Condition: Stable rn Diagnosis - Other viral enteritis rn - Nausea with vomiting, unspecified rn - Diarrhea, unspecified rn Followup: rn - With: Private Physician - When: As needed - Reason: Recheck today's complaints, Re-evaluation by your physician Discharge Instructions: - Discharge Summary Sheet rn - Diarrhea, Adult rn - Nausea and Vomiting, Adult rn - Viral Gastroenteritis, Adult rn Forms: - Medication Reconciliation Form rn - Antibiotic learning operations specialist - Prescription Opioid Use rn - Patient Portal Instructions rn - Leadership Thank You Letter rn Prescriptions: - ondansetron 4 mg Oral Tablet,disintegrating - take 1 tablet ORAL route every 8 hours for 3 doses as needed for nausea and rn vomiting; 12 tablet; Refills: 0, Product Selection Permitted Signatures: Dispatcher [employer] EDMS Ryder Mcdonald MD MD rn Jhoan, Jaimie, RN RN aa5 Ofelia Longoria RN RN kb4 Corrections: (The following items were deleted from the chart) 07:15 07:15 CBC+H.LAB.BRZ ordered. EDMS EDMS 07:15 07:15 COMPREHENSIVE METABOLIC PANEL+C.LAB.BRZ ordered. EDMS EDMS 07:15 07:15 LIPASE+C.LAB.BRZ ordered. EDMS EDMS 07:15 07:15 Abdomen Pelvis W Con+CT.RAD.BRZ ordered. EDMS EDMS
[2025-05-10 09:12] LABS: Blood Morphology Comment NOT SEEN (NOT SEEN)
[2025-05-10] MEDS ORDERED: DIPHENOX/ATROP SULF 1 TAB PO ONE (09:18)
[2025-05-10 09:53] VITALS: TEMP 98; O2SAT 98
[2025-05-10 10:03] VITALS: BP 143/62
== END 2025-05-10 09:38 | disposition home or self-care (01) ==
LOC: ER 06:51
DX: A08.39 Other viral enteritis (principal); F41.9 Anxiety disorder, unspecified; I10 Essential (primary) hypertension; E03.9 Hypothyroidism, unspecified; Z86.73 Personal history of transient ischemic attack (TIA), and cerebral infarction without residual deficits
CPT/HCPCS: 96361; 85025; 36415; 83690; 80053; 74177; 96375; 96374; 99284; 87428; Q9967; J1885; J2405; J7040